=== PATIENT | female | born 1935 | race Caucasian/White ===

== ENCOUNTER 2018-10-29 06:06 | Inpatient (IN) ==
[2018-10-29] MEDS ORDERED: *HR* FentaNYL (PF) 100 MCG/2 ML VIAL IVP ONE ×2 (06:17→07:27)
--- NOTE | 2018-10-29 07:32 | Emergency Department Note ---
Disposition Clinical Impression: Closed fracture of pubic ramus Pelvic fracture Qualifiers: Encounter type: initial encounter Pelvic bone location: pubis Sublocation of pubis: unspecified portion of pubis Fracture type: closed Laterality: right Qualified Code(s): S32.501A - Unspecified fracture of right pubis, initial encounter for closed fracture Disposition: Admitted As Inpatient Condition: Fair Referrals: Kath Patton MD [Primary Care Provider] - Forms: ED Satisfaction Letter Time of Disposition: 08:48 (Dr. Mic Gillette will admit) Fall HPI - General Chief Complaint: ED Fall Stated Complaint: right hip pain Time Seen by Provider: 10/29/18 07:27 Source: patient, family, EMS Mode of arrival: EMS Limitations: no limitations Nursing Notes Reviewed: Yes Vital Signs Reviewed: Yes - History of Present Illness Pt Subjective Complaint: fall Onset (ago): hour(s) (Fell about 4:00) Fall From: standing Fall Witnessed: no Place Fall Occurred: home Loss of Consciousness: none Prolonged Down Time?: no Symptoms Prior to Fall: none Context: tripped/slipped (Not exactly sure what she tripped over thinks it was some cardboard boxes that were there. States that she did hit her head but did not have a loss of consciousness. Pain to right hip but was able to get herself up and walk back to bed painfully) Location of injury: head, hip (Right hip), pelvis Location of injury - extremities: Right: hip Severity: severe Quality: sharp Associated symptoms (after fall): Reports: denies - Related Data Home Medications Medication Instructions Recorded Confirmed Clopidogrel [Plavix] 75 mg PO DAILY 02/20/17 08/11/18 Losartan Potassium [Cozaar] 50 mg PO DAILY 02/20/17 08/11/18 Omeprazole [PriLOSEC] 40 mg PO DAILY 02/20/17 08/11/18 Temazepam [Restoril] 15 mg PO HS 02/20/17 08/11/18 hydroCHLOROthiazide 12.5 mg PO DAILY 02/20/17 08/11/18 [Hydrochlorothiazide] Cholecalciferol (D-3) [Vitamin D] 2,000 unit PO DAILY 05/28/18 08/11/18 Rosuvastatin Calcium 5 mg PO DAILY 05/28/18 08/11/18 Vit C/E/Zn/Coppr/Lutein/Zeaxan 1 tab PO DAILY 05/28/18 08/11/18 [Preservision Areds 2 Softgel] Lactobacillus Acidophilus 1 mg PO 08/11/18 [Acidophilus Probiotic] Previous Rx's Medication Instructions Recorded Fexofenadine HCl 60 mg PO DAILY #20 tablet 05/30/18 Nitrofurantoin (BID) [Macrobid] 100 mg PO BID 7 Days #14 capsule 10/18/18 hydrOXYzine HCl [Hydroxyzine HCl] 25 mg PO Q6HR PRN #20 tab 10/18/18 Allergies Allergy/AdvReac Type Severity Reaction Status Date / Time acetazolamide Allergy Hallucinati Verified 10/18/18 11:15 [From Diamox Sequels] ng Penicillins [PCN] Allergy Hives Verified 10/18/18 11:15 All systems ED: reviewed and negative except as stated. Eyes: Denies: vision change Cardiovascular: Denies: chest pain, palpitations Respiratory: Denies: cough, dyspnea Gastrointestinal: Denies: abdominal pain, nausea, vomiting Musculoskeletal: Reports: arthralgia (Right hip and right buttock) Neurological: Denies: headache, weakness, numbness Fall PMH - Past Medical History Medical history: Reports: arthritis, cancer, GERD, hypertension Surgical history: Reports: angioplasty/stent, breast surgery (Right breast tumor removal), cancer surgery (Rectal cancer), cataract, cholecystectomy Psychiatric history: Reports: anxiety, depression DIRECTOR OF ACCOUNTS PAYABLE history: Reports: non-contributory - Social History Smoking Status: Former smoker Alcohol use: Reports: none Drug use: Reports: none Physical Exam - General Limitations: no limitations General appearance: alert, other (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 No lacerations) - Eye Eye exam: Present: normal appearance, PERRL, EOMI. Absent: scleral icterus, conjunctival injection - ENT ENT exam: normal exam, normal oropharynx, mucous membranes moist, normal external ear exam - Neck Neck exam: Present: normal inspection, full ROM, trachea midline. Absent: tenderness (No tenderness to the C-spine. Full range of motion in the neck without pain to the C-spine. Bears axial load on the C-spine without any pain) - Chest Chest inspection: Present: normal inspection, symmetric chest wall rise. Absent: tenderness - Respiratory Respiratory exam: Present: normal lung sounds bilaterally. Absent: respiratory distress, wheezes - Cardiovascular Cardiovascular exam: Present: regular rate, normal rhythm, normal heart sounds - Abdominal Exam Abdominal exam: Present: soft, Non-Tender, normal bowel sounds - Extremities Exam Extremities exam: Present: other (Patient has no tenderness to palpation of the pelvis. She has no tenderness palpation of the greater trochanters of either hip. She is moving both hip joints while moaning but does not seen that her hip particularly hurts more with movement of the hip joints. She seems to have more discomfort in the buttocks on the right when she moves. Distal neurologic and vascular examination is normal.) - Neurological Exam Neurological exam: Present: alert, oriented X3. Absent: motor sensory deficit - Psychiatric Psychiatric exam: Present: normal affect, normal mood - Skin Skin exam: Present: warm, dry, intact Course Course Narrative: Patient tripped and fell at home. She hit her head and hurt her right hip. She was able to ambulate on it after the fall. We will CT the head and x-ray the hip. I will give her pain medications. Disposition will be based on diagnostic results and reevaluation. - Reevaluation(s) Reevaluation #1: X-ray of the hip shows a right-sided superior and inferior pubic ramus fracture. However the patient points to the greater trochanter as location of her discomfort. Furthermore she is not tender to palpation over the pubic rami on either side on vigorous palpation. She seems a lot of discomfort to the buttock/sacral area on the right with movement. She keeps lifting her right and left leg up, flexing at the hip, in order to obtain a position of comfort. Overall the exam and patient complaint does not seem consistent with lower seen on the plain films. I am going to proceed with CT of the pelvis to get a better look at the pelvic ring and the right hip. We will give her more pain medicines. Fortunately her head CT looks fine. No other injury identified on physical exam or complained about why the patient. Time: 07:37 Reevaluation #2: At this point is the end of my shift. I will be turning the case over to the oncoming physician, Dr. Fisher. I am given report and disposition will be based on the CT and reevaluation. Time: 07:49 Vital Signs Temperature 97.8 F 10/29/18 06:09 Pulse Rate 86 10/29/18 06:09 Respiratory Rate 17 10/29/18 06:09 Blood Pressure 143/79 10/29/18 06:09 O2 Sat by Pulse Oximetry 97 10/29/18 06:09 Temperature 97.8 F 10/29/18 06:09 Pulse Rate 76 10/29/18 08:38 Respiratory Rate 17 10/29/18 08:38 Blood Pressure 131/54 10/29/18 08:38 O2 Sat by Pulse Oximetry 97 10/29/18 08:38 Oxygen Delivery Oxygen Delivery Room Air Fall - MDM Narrative Medical decision making narrative: This case was turned over to me by previous physician at [address] of the right hip. CT scan per radiology reading shows a right superior amp inferior pubic ramus fracture. Patient has ongoing pain and cannot bear weight on her right lower extremity secondary to the pain. I spoke to the hospitalist Dr. Mic Gillette, and he has agreed to admit the patient for pain management and possible physical therapy. - Radiology Data Radiology results reviewed: Yes I reviewed the patient's radiology results.
[2018-10-29] MEDS ORDERED: Morphine Sulfate 2 MG/ML SYRINGE IVP ONE (08:39)
[2018-10-29] MEDS ORDERED: Ondansetron 4 MG/2 ML VIAL IVP ONE (08:40)
[2018-10-29] MEDS ORDERED: Ondansetron 4 MG/2 ML VIAL IVP PRN ×2 (08:43→10:11)
[2018-10-29] MEDS ORDERED: *HR* HYDROcodone/Acet 5/325 mg TABLET PO PRN ×2 (08:43→10:11)
[2018-10-29] MEDS ORDERED: Naloxone 0.4 MG/ML INJ IVP PRN ×2 (08:43→10:11)
[2018-10-29] MEDS ORDERED: hydrOXYzine pamoate 25 MG CAPSULE PO PRN (10:11)
--- NOTE | 2018-10-29 12:36 | Internal Med History&Physical ---
Date of Encounter: 10/29/18 Time of Encounter: 12:34 Assessment and Plan (1) Fracture of sacrum Current visit: Yes Status: Acute Patient with non-displaced to minimally displaced fracture of R sacrum, R inferior pubic ramus, and R superior pubic ramus. Will continue supportive care with pain control. Will arrange PT/OT and social work eval as pt may require rehab stay. Consider sports medicine evaluation on Wednesday. Consider DXA scan as outpatient if not up to date. Qualifiers: Encounter type: initial encounter Zone of sacrum fracture: unspecified portion of sacrum Fracture type: closed Qualified Code(s): S32.10XA - Unspecified fracture of sacrum, initial encounter for closed fracture (2) Fracture of superior ramus of right pubis Current visit: Yes Status: Acute Qualifiers: Encounter type: initial encounter Fracture type: closed Qualified Code(s): S32.511A - Fracture of superior rim of right pubis, initial encounter for closed fracture (3) Fracture of right inferior pubic ramus Current visit: Yes Status: Acute Qualifiers: Encounter type: initial encounter Fracture type: closed Qualified Code(s): S32.591A - Other specified fracture of right pubis, initial encounter for closed fracture (4) Hypertension Current visit: Yes Status: Chronic Appears under fair control. Will continue outpatient regimen and monitor. Will check labs in AM. Qualifiers: Hypertension type: essential hypertension Qualified Code(s): I10 - Essential (primary) hypertension (5) GERD (gastroesophageal reflux disease) Current visit: Yes Status: Chronic Well-controlled. Will continue outpatient regimen. Qualifiers: Esophagitis presence: without esophagitis Qualified Code(s): K21.9 - Gastro-esophageal reflux disease without esophagitis (6) Anxiety disorder Current visit: Yes Status: Chronic Well-controlled. Will continue outpatient regimen. Qualifiers: Anxiety disorder type: generalized anxiety disorder Qualified Code(s): F41.1 - Generalized anxiety disorder (7) Hyperlipidemia Current visit: Yes Status: Chronic Will continue home statin regimen. Qualifiers: Hyperlipidemia type: unspecified Qualified Code(s): E78.5 - Hyperlipidemia, unspecified Internal Medicine - H&P: HPI Chief complaint: hip pain Admitted From: Emergency Dept Plans for Post Hospital Care: Home History of present illness: Ms. Lima is a 83 year old female that presented to ED with hip and back pain s/p fall. Pt sustained a mechanical fall in which she tripped and fell forward, striking head and right hip. She denies LOC. She had fairly severe R hip pain s/p fall and was able to ambulate to phone to call EMS. Pt was transported to ED in which she was found to have sacral and pubic rami fractures. She was admitted to the med-surg floor for on going care needs including pain control and PT/OT eval with possible need for rehab placement. Past Med Surg Social Fam HX - Past Medical History Medical history: arthritis, cancer, GERD, hypertension Additional medical history: breast ca Psychiatric history: anxiety, depression - Past Surgical History Surgical History: angioplasty/stent, breast surgery (Right breast tumor removal), cancer surgery (Rectal cancer), cataract, cholecystectomy Additional surgical history: R breast tumor removal, rectal tumor removed, AND 5 LYMPH NODES REMOVED - Social History Smoking Status: Former smoker Smokeless Tobacco Status: No Alcohol use: none Drug use: none Internal Medicine - H&P: Meds Clopidogrel [Plavix] 75 mg PO DAILY 02/20/17 [History] Losartan Potassium [Cozaar] 50 mg PO DAILY 02/20/17 [History] Omeprazole [PriLOSEC] 40 mg PO DAILY 02/20/17 [History] Temazepam [Restoril] 15 mg PO HS 02/20/17 [History] hydroCHLOROthiazide [Hydrochlorothiazide] 12.5 mg PO DAILY 02/20/17 [History] Cholecalciferol (D-3) [Vitamin D] 2,000 unit PO DAILY 05/28/18 [History] Rosuvastatin Calcium 5 mg PO DAILY 05/28/18 [History] Vit C/E/Zn/Coppr/Lutein/Zeaxan [Preservision Areds 2 Softgel] 1 tab PO DAILY 05/28/18 [History] Fexofenadine HCl 60 mg PO DAILY #20 tablet 05/30/18 [Rx] Lactobacillus Acidophilus [Acidophilus Probiotic] 1 mg PO 08/11/18 [History] Nitrofurantoin (BID) [Macrobid] 100 mg PO BID 7 Days #14 capsule 10/18/18 [Rx] hydrOXYzine HCl [Hydroxyzine HCl] 25 mg PO Q6HR PRN #20 tab 10/18/18 [Rx] Allergy/AdvReac Type Severity Reaction Status Date / Time acetazolamide Allergy Hallucinati Verified 10/18/18 11:15 [From Diamox Sequels] ng Penicillins [PCN] Allergy Hives Verified 10/18/18 11:15 All Systems PM: A 10-system review of systems was performed and is negative for pertinent findings except as documented above in the HPI. - Constitutional Vitals: Temp Pulse Resp BP Pulse Ox 98.3 F 88 17 150/76 97 10/29/18 10:50 10/29/18 10:50 10/29/18 10:50 10/29/18 10:50 10/29/18 10:50 Exam: Gen: Lying in bed, NAD HEENT: NC, AT Neck: Trachea midline, no mass Pulm: No respiratory distress, CTAB CV: Normal S1 and S2, RRR Abdomen: Soft, ND, NT Ext: No C/C/E Neuro: No appreciable motor/sensor deficits Skin: Warm and dry, no rash Psych: A&Ox3 Internal Med - H&P Results - Impressions ITS Impressions Head CT 10/29/18 06:15 IMPRESSION: 1. No acute intracranial abnormality. D/ / Cezar Rogers MD / Cezar Rogers MD Interpreting Provider: eCzar Rogers MD Hip X-Ray 10/29/18 06:15 IMPRESSION: 1. Acute fractures of the right superior and inferior pubic rami. D/ / Cezar Rogers MD / Cezar Rogers MD Interpreting Provider: Cezar Rogers MD Hip CT 10/29/18 07:29 IMPRESSION: Pelvis: 1. Suspected acute nondisplaced right sacral ala fracture. 2. Slightly displaced segmental inferior right pubic ramus fracture. Right superior pubic ramus fracture. 3. Mild sigmoid colonic diverticulosis. Right hip: 1. Minimally displaced to nondisplaced right sacral ala fracture, partially visualized. 2. Acute fractures involving the right superior and inferior pubic rami. 3. Mild right hip osteoarthrosis. 4. Mild sigmoid colonic diverticulosis. D/ / 10/29/2018 09:18:13 Chris Jordan MD / yonas Interpreting Provider: Chris Jordan MD
[2018-10-29] MEDS: *HR* Heparin 5,000 UNIT/ML VIAL SQ SCH ×2 (13:35→21:09)
[2018-10-29] MEDS: Loratadine 10 MG TABLET PO SCH (13:36)
[2018-10-29] MEDS: Cholecalciferol (D-3) 1,000 UNIT (25MCG) TABLET PO SCH (13:37)
[2018-10-29] MEDS: hydroCHLOROthiazide 25 MG TABLET PO SCH (13:37)
[2018-10-29] MEDS: Multivit/Ca/Min/Fe/FA 1 TAB TABLET PO SCH (13:37)
[2018-10-29] MEDS: Nitrofurantoin (BID) 100 MG CAPSULE PO SCH ×2 (13:37→21:11)
[2018-10-29] MEDS: *HR* HYDROcodone/Acet 5/325 mg TABLET PO PRN ×2 (16:45→21:09)
[2018-10-29] MEDS ORDERED: hydrOXYzine pamoate 25 MG CAPSULE PO SCH (20:00)
[2018-10-29] MEDS: Temazepam 15 MG CAPSULE PO SCH (21:08)
[2018-10-29] MEDS: hydrOXYzine pamoate 25 MG CAPSULE PO PRN (21:08)
[2018-10-30] MEDS: *HR* HYDROcodone/Acet 5/325 mg TABLET PO PRN ×2 (00:55→06:25)
[2018-10-30] MEDS: hydrOXYzine pamoate 25 MG CAPSULE PO PRN ×2 (02:48→17:27)
[2018-10-30 03:21] LABS: Bilirubin,Urine Negative (Negative); Blood,Urine Negative (Negative); Glucose,Urine (UA) Normal (Normal); Ketones,Urine 15 mg/dL (Negative); Leukocyte Esterase,Urine Negative (Negative); Nitrite,Urine Negative (Negative); Protein,Urine Negative (Neg-Trace); Specific Gravity,Urine 1.015 (1.010-1.025); Urobilinogen,Urine Normal (Normal)
[2018-10-30 03:24] LABS: Clarity,Urine Clear (Clear); Color,Urine Yellow (Yellow)
[2018-10-30] MEDS: *HR* Heparin 5,000 UNIT/ML VIAL SQ SCH ×3 (06:25→20:49)
[2018-10-30 06:54] LABS: Basophils % 0.6 %; Eosinophils % 0.6 %; Hemoglobin 8.1 g/dL (11.5-15.4); Immature Granulocytes % 0.4 % (0-4); Lymphocytes # 0.6 K/mcL (0.6-4.6); Lymphocytes % 7.8 %; Mean Corpuscular HGB Conc 32.4 g/dL (31.6-35.5); Mean Corpuscular Hemoglobin 31.5 pg (28.0-33.3); Mean Corpuscular Volume 97.3 fL (83.0-100.0); Mean Platelet Volume 10.3 fL (9.4-12.4); Monocytes # 0.5 K/mcL (0.0-1.3); Monocytes % 6.8 %; Neutrophils # 5.9 K/mcL (1.6-8.9); Platelet Count 168 K/mcL (140-400); Red Blood Count 2.57 M/mcL (3.82-4.97); Red Cell Distribution Width 13.4 % (11.5-14.5); Segmented Neutrophils % 83.8 %; White Blood Count 7.1 K/mcL (4.3-11.1)
[2018-10-30] MEDS: hydroCHLOROthiazide 25 MG TABLET PO SCH (07:06)
[2018-10-30 07:09] LABS: Calcium 8.3 mg/dL (8.6-10.3); Potassium 3.6 mEq/L (3.5-5.1)
[2018-10-30] MEDS: Cholecalciferol (D-3) 1,000 UNIT (25MCG) TABLET PO SCH (08:56)
[2018-10-30] MEDS: Loratadine 10 MG TABLET PO SCH (08:56)
[2018-10-30] MEDS: Multivit/Ca/Min/Fe/FA 1 TAB TABLET PO SCH (08:56)
[2018-10-30] MEDS: Nitrofurantoin (BID) 100 MG CAPSULE PO SCH (08:58)
[2018-10-30] MEDS ORDERED: 0.9 % Sodium Chloride 250 ML IVC ONE (09:26)
--- NOTE | 2018-10-30 11:06 | Internal Med Progress Note ---
Date of Encounter: 10/30/18 Time of Encounter: 10:35 - Assessment and plan (1) Closed fracture of pubic ramus Current Visit: Yes Status: Acute Assessment and plan: October 30. Analgesics will be given on a scheduled basis with additional prn medication available. PT and OT evaluation will be done and further workup as needed. Qualifiers: Encounter type: initial encounter Laterality: right Qualified Code(s): S32.591A - Other specified fracture of right pubis, initial encounter for closed fracture (2) Fracture of sacrum Current Visit: Yes Status: Acute Assessment and plan: October 30. As above Qualifiers: Encounter type: initial encounter Zone of sacrum fracture: unspecified port ion of sacrum Fracture type: closed Qualified Code(s): S32.10XA - Unspecified fracture of sacrum, initial encounter for closed fracture (3) Anemia Current Visit: Yes Status: Chronic Assessment and plan: October 30. Present on labs frequently since August 2014. Anemia testing will be ordered. Qualifiers: Anemia type: unspecified type Qualified Code(s): D64.9 - Anemia, unspecified (4) LUZ (acute kidney injury) Current Visit: Yes Status: Acute Assessment and plan: Possibly multifactorial etiology including use of losartan and HCTZ. These medications will be held and IV fluids administered. Follow-up labs will be ordered in a.m. (5) CKD (chronic kidney disease) stage 3, GFR 30-59 ml/min Current Visit: Yes Status: Acute Assessment and plan: October 30. Monitor renal indices. (6) Weight loss Current Visit: Yes Status: Acute Assessment and plan: October 30. TSH was normal at 3.959 on 10/07/2018. CT of chest and abdomen will be ordered. (7) Hypertension Current Visit: Yes Status: Chronic Assessment and plan: October 30. Blood pressure borderline low. Remain off antihypertensive medication and monitor. Qualifiers: Hypertension type: essential hypertension Qualified Code(s): I10 - Essential (primary) hypertension - Subjective Interval history: October 30. She has no new complaints. Additional review of systems revealed following: Gen.: She states her weight has decreased from 120 pounds to 104 pounds over past 2 years unintentionally. She attributes this to depression. Cardiovascular: She has history of hypertension and known ASHD status post single stent placement approximately 2013. She has not had follow-up EST or heart catheter. She denies NC heart failure DVT or pulmonary embolus. Respiratory: She is a lifelong nonsmoker denies chronic lung disease GI: She has had cholecystectomy. She has diagnoses of GERD. She denies disorders of her liver or exocrine pancreas : She was unaware she had chronic kidney disease. She denies other kidney or bladder disorders. Neurologic: She denies large distribution strokes or seizures. Endocrine: She has history of hyperkalemia. She denies diabetes or thyroid disease. Hematology/oncology: She was diagnosed with right breast cancer approximately 1996 and underwent lumpectomy followed by chemotherapy and XRT. She was diagnosed with rectal cancer approximately 2011 and had surgery but denies chemotherapy. She states she is cancer free. She was unaware she had anemia. Psychiatric: She has anxiety and depression but denies other mental health diagnoses. Muscle skeletal: She has DJD but denies gout or other bone joint or muscle disorders. - Constitutional Vitals: Temp Pulse Resp BP Pulse Ox 98.5 F 68 16 80/43 98 10/30/18 06:38 10/30/18 06:38 10/30/18 06:38 10/30/18 06:38 10/30/18 06:38 Exam: Gen.: She is a well-developed well-nourished female resting comfortably in bed who appears pale and in [id number] pain on movement. HEENT: Head is atraumatic and normocephalic. Eyes: EOMI. There is no scleral icterus. Mouth: Mucosa is moist. Neck: Supple and nontender. There is no thyromegaly or adenopathy noted. Heart: Regular without murmurs gallops or ectopics Lungs: No wheezes or crackles are heard. Abdomen: She has mild tenderness in the lower abdominal area bilaterally on palpation. No masses or guarding are noted. Extremities: She has DJD changes of her hands. Dorsalis pedis and posterior tibial pulses are 1-2/2 bilaterally. Neurologic: Mental status: She is talkative and a good historian. Cranial nerves: Smile is symmetric. Forehead wrinkles bilaterally. Tongue protrudes midline. EOMI. Motor: There is no pronator drift. Cerebellar: Fair to nose is intact bilaterally. Skin: Warm and dry Internal Medicine: Result - Labs CBC & Chem 7: 10/30/18 06:18 10/30/18 06:18 Labs: Short CBC 10/30/18 Range/Units 06:18 WBC 7.1 (4.3-11.1) K/mcL Hgb 8.1 L (11.5-15.4) g/dL Hct 25.0 L (35.3-44.9) % Plt Count 168 (140-400) K/mcL Neutrophils # 5.9 (1.6-8.9) K/mcL BMP 10/30/18 06:18 Sodium 141 Potassium 3.6 Chloride 105 Carbon Dioxide 30 H BUN 25 H Creatinine 1.46 H Glucose 123 H Calcium 8.3 L Liver Function 10/30/18 Range/Units 06:18 Albumin 3.0 L (3.5-5.7) g/dL Urine 10/30/18 Range/Units 03:10 Urine Color Yellow (Yellow) Urine Clarity Clear (Clear) Urine pH 5.0 (5.0-8.0) pH Units Ur Specific [place] 1.015 (1.010-1.025) Urine Protein Negative (Neg-Trace) mg/dL Urine Glucose (UA) Normal (Normal) mg/dL - Impressions Impressions Hip CT 10/29/18 07:29 IMPRESSION: Pelvis: 1. Suspected acute nondisplaced right sacral ala fracture. 2. Slightly displaced segmental inferior right pubic ramus fracture. Right superior pubic ramus fracture. 3. Mild sigmoid colonic diverticulosis. Right hip: 1. Minimally displaced to nondisplaced right sacral ala fracture, partially visualized. 2. Acute fractures involving the right superior and inferior pubic rami. 3. Mild right hip osteoarthrosis. 4. Mild sigmoid colonic diverticulosis. D/ / 10/29/2018 09:18:13 Chris Jordan MD / yonas Interpreting Provider: Chris Jordan MD Consult Discharge Plan - Plan Referrals: Kath Patton MD [Primary Care Provider] - 1 week
[2018-10-30] MEDS: 0.45 % Sodium Chloride w/KCl 20 MEQ/1,000 ML MLS IVC SCH ×2 (12:02→22:32)
[2018-10-30] MEDS: *HR* OxyCODONE Immed Rel 5 MG TABLET PO PRN ×2 (13:42→17:27)
[2018-10-30] MEDS: Temazepam 15 MG CAPSULE PO SCH (20:01)
[2018-10-31] MEDS: *HR* Heparin 5,000 UNIT/ML VIAL SQ SCH (05:51)
[2018-10-31 06:43] LABS: Basophils % 0.3 %; Eosinophils # 0.2 K/mcL (0.0-0.6); Eosinophils % 2.6 %; Hematocrit 26.1 % (35.3-44.9); Hemoglobin 8.3 g/dL (11.5-15.4); Immature Granulocytes % 0.3 % (0-4); Lymphocytes # 1.1 K/mcL (0.6-4.6); Lymphocytes % 16.9 %; Mean Corpuscular HGB Conc 31.8 g/dL (31.6-35.5); Mean Corpuscular Hemoglobin 31.2 pg (28.0-33.3); Mean Corpuscular Volume 98.1 fL (83.0-100.0); Mean Platelet Volume 10.1 fL (9.4-12.4); Monocytes # 0.5 K/mcL (0.0-1.3); Monocytes % 7.9 %; Neutrophils # 4.5 K/mcL (1.6-8.9); Platelet Count 149 K/mcL (140-400); Red Blood Count 2.66 M/mcL (3.82-4.97); Red Cell Distribution Width 13.8 % (11.5-14.5); White Blood Count 6.2 K/mcL (4.3-11.1)
[2018-10-31 07:10] LABS: Calcium 8.2 mg/dL (8.6-10.3); Magnesium 1.7 mg/dL (1.6-2.6); Potassium 4.5 mEq/L (3.5-5.1)
[2018-10-31] MEDS: 0.45 % Sodium Chloride w/KCl 20 MEQ/1,000 ML MLS IVC SCH ×3 (09:33→19:56)
[2018-10-31] MEDS: MOM Conc 10 ML UD.LIQ PO SCH (09:33)
[2018-10-31] MEDS: Cholecalciferol (D-3) 1,000 UNIT (25MCG) TABLET PO SCH (09:33)
[2018-10-31] MEDS: Multivit/Ca/Min/Fe/FA 1 TAB TABLET PO SCH (09:34)
[2018-10-31] MEDS: *HR* OxyCODONE Immed Rel 5 MG TABLET PO PRN ×2 (09:34→13:46)
[2018-10-31 09:38] LABS: Folate 16.4 ng/mL (3.0-16.0)
--- NOTE | 2018-10-31 11:49 | Internal Med Progress Note ---
Date of Encounter: 10/31/18 Time of Encounter: 11:35 - Assessment and plan (1) Closed fracture of pubic ramus Current Visit: Yes Status: Acute Assessment and plan: October 30. Analgesics will be given on a scheduled basis with additional prn medication available. PT and OT evaluation will be done and further workup as needed. October 31. Duragesic patch will be added. Continue scheduled Tylenol and prn Roxicodone. PT/OT evaluations have been ordered. I requested orthopedist to evaluate her x-rays and determine weightbearing status. Qualifiers: Encounter type: initial encounter Laterality: right Qualified Code(s): S32.591A - Other specified fracture of right pubis, initial encounter for closed fracture (2) Fracture of sacrum Current Visit: Yes Status: Acute Assessment and plan: October 30. As above Qualifiers: Encounter type: initial encounter Zone of sacrum fracture: unspecified portion of sacrum Fracture type: closed Qualified Code(s): S32.10XA - Unspecified fracture of sacrum, initial encounter for closed fracture (3) Anemia Current Visit: Yes Status: Chronic Assessment and plan: October 30. Present on labs frequently since August 2014. Anemia testing will be ordered. October 31. Anemia testing shows iron 11, transferrin saturation 5%, transferrin 153, ferritin 206, B12 144, and folate 16.4. She will be given a B12 injection and start oral B12 supplement. Ferrous sulfate with ascorbic acid will be started in a.m. Qualifiers: Anemia type: unspecified type Qualified Code(s): D64.9 - Anemia, unspecified (4) LUZ (acute kidney injury) Current Visit: Yes Status: Acute Assessment and plan: October 30. Possibly multifactorial etiology including use of losartan and HCTZ. These medications will be held and IV fluids administered. Follow-up la bs will be ordered in a.m. October 31. Creatinine decreased to 1.25 with estimated GFR 41. Continue present Rx and monitor labs. (5) CKD (chronic kidney disease) stage 3, GFR 30-59 ml/min Current Visit: Yes Status: Acute Assessment and plan: October 30. Monitor renal indices. (6) Weight loss Current Visit: Yes Status: Acute Assessment and plan: October 30. TSH was normal at 3.959 on 10/07/2018. CT of chest and abdomen will be ordered. October 31. CT of chest and abdomen showed no worrisome pathology. (7) Hypertension Current Visit: Yes Status: Chronic Assessment and plan: October 30. Blood pressure borderline low. Remain off antihypertensive medication and monitor. October 31. BP stable off medication. Continue to monitor. Qualifiers: Hypertension type: essential hypertension Qualified Code(s): I10 - Essential (primary) hypertension - Subjective Interval history: October 30. She has no new complaints. Additional review of systems revealed following: Gen.: She states her weight has decreased from 120 pounds to 104 pounds over past 2 years unintentionally. She attributes this to depression. Cardiovascular: She has history of hypertension and known ASHD status post single stent placement approximately 2013. She has not had follow-up EST or heart catheter. She denies [place] heart failure DVT or pulmonary embolus. Respiratory: She is a lifelong nonsmoker denies chronic lung disease GI: She has had cholecystectomy. She has diagnoses of GERD. She denies disorders of her liver or exocrine pancreas : She was unaware she had chronic kidney disease. She denies other kidney or bladder disorders. Neurologic: She denies large distribution strokes or seizures. Endocrine: She has history of hyperkalemia. She denies diabetes or thyroid disease. Hematology/oncology: She was diagnosed with right breast cancer approximately 1996 and underwent lumpectomy followed by chemotherapy and XRT. She was diagnosed with rectal cancer approximately 2011 and had surgery but denies c hemotherapy. She states she is cancer free. She was unaware she had anemia. Psychiatric: She has anxiety and depression but denies other mental health diagnoses. Muscle skeletal: She has DJD but denies gout or other bone joint or muscle disorders. October 31. She complains of significant pelvic pain - Constitutional Vitals: Temp Pulse Resp BP Pulse Ox 97.5 F L 72 16 118/66 99 10/31/18 06:55 10/31/18 06:55 10/31/18 06:55 10/31/18 06:55 10/31/18 06:55 Exam: She is lying in bed and appears to be in pain on movement. She is appropriate in conversation and seems to be in less pain when the conversation is shifted away from discussing her pain level. I reviewed her medications and lab results. Internal Medicine: Result - Labs CBC & Chem 7: 10/31/18 06:30 10/31/18 06:30 Labs: Short CBC 10/31/18 Range/Units 06:30 WBC 6.2 (4.3-11.1) K/mcL Hgb 8.3 L (11.5-15.4) g/dL Hct 26.1 L (35.3-44.9) % Plt Count 149 (140-400) K/mcL Neutrophils # 4.5 (1.6-8.9) K/mcL BMP 10/31/18 06:30 Sodium 141 Potassium 4.5 Chloride 106 Carbon Dioxide 30 H BUN 31 H Creatinine 1.25 H Glucose 96 Calcium 8.2 L - Impressions Impressions Chest CT 10/30/18 11:22 IMPRESSION: 1. Small bilateral pleural effusions and mild bibasilar atelectasis. 2. Redemonstration of an acute nondisplaced right sacral ala fracture with partially visualized presacral stranding. 3. Status post cholecystectomy. D/ / Ciro Gillette MD / Ciro Gillette MD Interpreting Provider: Ciro Gillette MD Abdomen CT 10/30/18 11:29 IMPRESSION: 1. Small bilateral pleural effusions and mild bibasilar atelectasis. 2. Redemonstration of an acute nondisplaced right sacral ala fracture with partially visualized presacral stranding. 3. Status post cholecystectomy. D/ / Ciro Gillette MD / Ciro Gillette MD Interpreting Provider: Ciro Gillette MD Consult Discharge Plan - Plan Referrals: Kath Patton MD [Primary Care Provider] - 1 week
[2018-10-31] MEDS ORDERED: Cyanocobalamin (B-12) 1,000 MCG/ML VIAL IM ONE (11:52)
[2018-10-31] MEDS ORDERED: *HR* FentaNYL PATCH 12 MCG PATCH TD SCH (12:00)
[2018-10-31] MEDS: Temazepam 15 MG CAPSULE PO SCH (20:18)
[2018-11-01] MEDS: Ascorbic Acid 500 MG TABLET PO SCH (06:46)
[2018-11-01] MEDS: *HR* Enoxaparin 30 MG/0.3 ML SYRINGE SQ SCH (06:46)
[2018-11-01] MEDS: 0.45 % Sodium Chloride w/KCl 20 MEQ/1,000 ML MLS IVC SCH ×3 (06:50→19:43)
[2018-11-01] MEDS: Cyanocobalamin (B-12) 1,000 MCG TABLET PO SCH (07:47)
[2018-11-01] MEDS: Multivit/Ca/Min/Fe/FA 1 TAB TABLET PO SCH (07:47)
[2018-11-01] MEDS: Lactobacillus 1 EACH CAP.SPRINK PO SCH (07:47)
[2018-11-01] MEDS: Cholecalciferol (D-3) 1,000 UNIT (25MCG) TABLET PO SCH (07:47)
--- NOTE | 2018-11-01 09:52 | Internal Med Progress Note ---
Date of Encounter: 11/01/18 Time of Encounter: 09:45 - Assessment and plan (1) Closed fracture of pubic ramus Current Visit: Yes Status: Acute Assessment and plan: October 30. Analgesics will be given on a scheduled basis with additional prn medication available. PT and OT evaluation will be done and further workup as needed. October 31. Duragesic patch will be added. Continue scheduled Tylenol and prn Roxicodone. PT/OT evaluations have been ordered. I requested orthopedist to evaluate her x-rays and determine weightbearing status. November 01. Increase Duragesic patch size. Continue Tylenol and Roxicodone a s ordered. Qualifiers: Encounter type: initial encounter Laterality: right Qualified Code(s): S32.591A - Other specified fracture of right pubis, initial encounter for closed fracture (2) Fracture of sacrum Current Visit: Yes Status: Acute Assessment and plan: October 30. As above Qualifiers: Encounter type: initial encounter Zone of sacrum fracture: unspecified portion of sacrum Fracture type: closed Qualified Code(s): S32.10XA - Unspecified fracture of sacrum, initial encounter for closed fracture (3) Anemia Current Visit: Yes Status: Chronic Assessment and plan: October 30. Present on labs frequently since August 2014. Anemia testing will be ordered. October 31. Anemia testing shows iron 11, transferrin saturation 5%, transferrin 153, ferritin 206, B12 144, and folate 16.4. She will be given a B12 injection and start oral B12 supplement. Ferrous sulfate with ascorbic acid will be started in a.m. November 01. Recheck labs in a.m. Qualifiers: Anemia type: unspecified type Qualified Code(s): D64.9 - Anemia, unspecified (4) LUZ (acute kidney injury) Current Visit: Yes Status: Acute Assessment and plan: October 30. Possibly multifactorial etiology including use of losartan and HCTZ. These medications will be held and IV fluids administered. Follow-up labs will be ordered in a.m. October 31. Creatinine decreased to 1.25 with estimated GFR 41. Continue present Rx and monitor labs. November 01. Recheck labs in a.m. (5) CKD (chronic kidney disease) stage 3, GFR 30-59 ml/min Current Visit: Yes Status: Acute Assessment and plan: October 30. Monitor renal indices. (6) Weight loss Current Visit: Yes Status: Acute Assessment and plan: October 30. TSH was normal at 3.959 on 10/07/2018. CT of chest and abdomen will be ordered. October 31. CT of chest and abdomen showed no worrisome pathology. (7) Hypertension Current Visit: Yes Status: Chronic Assessment and plan: October 30. Blood pressure borderline low. Remain off antihypertensive medication and monitor. October 31. BP stable off medication. Continue to monitor. Qualifiers: Hypertension type: essential hypertension Qualified Code(s): I10 - Essential (primary) hypertension - Subjective Interval history: October 30. She has no new complaints. Additional review of systems revealed following: Gen.: She states her weight has decreased from 120 pounds to 104 pounds over past 2 years unintentionally. She attributes this to depression. Cardiovascular: She has history of hypertension and known ASHD status post single stent placement approximately 2013. She has not had follow-up EST or heart catheter. She denies [place] heart failure DVT or pulmonary embolus. Respiratory: She is a lifelong nonsmoker denies chronic lung disease GI: She has had cholecystectomy. She has diagnoses of GERD. She denies disorders of her liver or exocrine pancreas : She was unaware she had chronic kidney disease. She denies other kidney or bladder disorders. Neurologic: She denies large distribution strokes or seizures. Endocrine: She has history of hyperkalemia. She denies diabetes or thyroid disease. Hematology/oncology: She was diagnosed with right breast cancer approximately 1996 and underwent lumpectomy followed by chemotherapy and XRT. She was diagnosed with rectal cancer approximately 2011 and had surgery but denies chemotherapy. She states she is cancer free. She was unaware she had anemia. Psychiatric: She has anxiety and depression but denies other mental health diagnoses. Muscle skeletal: She has DJD but denies gout or other bone joint or muscle disorders. October 31. She complains of significant pelvic pain November 01. She states her pain level has not decreased. Her films were reviewed by the orthopedist yesterday who recommended NWB for 2 weeks. - Constitutional Vitals: Temp Pulse Resp BP Pulse Ox 98.3 F 78 20 129/76 97 11/01/18 06:28 11/01/18 06:28 11/01/18 06:28 11/01/18 06:28 11/01/18 06:28 Exam: She is lying in bed and moans in pain occasionally during the visit. Extremities show no edema. I reviewed her medications and lab results. Internal Medicine: Result - Labs CBC & Chem 7: 10/31/18 06:30 10/31/18 06:30 Consult Discharge Plan - Plan Referrals: Kath Patton MD [Primary Care Provider] - 1 week
[2018-11-01] MEDS ORDERED: *HR* FentaNYL PATCH 25 MCG PATCH TD SCH (10:00)
[2018-11-01] MEDS: *HR* OxyCODONE Immed Rel 5 MG TABLET PO PRN ×3 (10:36→22:21)
[2018-11-01] MEDS: hydrOXYzine pamoate 25 MG CAPSULE PO PRN (16:00)
[2018-11-01] MEDS: Temazepam 15 MG CAPSULE PO SCH (19:41)
[2018-11-01] MEDS: PRESERVISION AREDS 2 PO SCH (19:41)
[2018-11-02] MEDS: *HR* OxyCODONE Immed Rel 5 MG TABLET PO PRN (05:13)
[2018-11-02] MEDS: hydrOXYzine pamoate 25 MG CAPSULE PO PRN (05:13)
[2018-11-02] MEDS: Ascorbic Acid 500 MG TABLET PO SCH (05:24)
[2018-11-02] MEDS: *HR* Enoxaparin 30 MG/0.3 ML SYRINGE SQ SCH (05:24)
[2018-11-02 05:28] LABS: Basophils % 0.6 %; Eosinophils # 0.2 K/mcL (0.0-0.6); Hemoglobin 8.5 g/dL (11.5-15.4); Immature Granulocytes % 0.4 % (0-4); Lymphocytes % 18.2 %; Mean Corpuscular HGB Conc 31.5 g/dL (31.6-35.5); Mean Corpuscular Volume 98.5 fL (83.0-100.0); Mean Platelet Volume 10.4 fL (9.4-12.4); Monocytes # 0.4 K/mcL (0.0-1.3); Monocytes % 7.8 %; Neutrophils # 3.8 K/mcL (1.6-8.9); Platelet Count 222 K/mcL (140-400); Red Blood Count 2.74 M/mcL (3.82-4.97); Red Cell Distribution Width 13.8 % (11.5-14.5); White Blood Count 5.4 K/mcL (4.3-11.1)
[2018-11-02 05:42] LABS: BUN/Creatinine Ratio 24 (6-26); Blood Urea Nitrogen 23 mg/dL (8-23); Calcium 8.8 mg/dL (8.6-10.3); Carbon Dioxide 29 mEq/L (23-29); Chloride 106 mEq/L (98-107); Glucose 94 mg/dL (70-105); Osmolality,Calculated 295 (280-300); Potassium 5.7 mEq/L (3.5-5.1); Sodium 141 mEq/L (136-145); eGFR For African Americans > 60 (> 60); eGFR For Non-African Americans 55 (> 60)
[2018-11-02] MEDS: 0.45 % Sodium Chloride w/KCl 20 MEQ/1,000 ML MLS IVC SCH (07:43)
[2018-11-02] MEDS: Cholecalciferol (D-3) 1,000 UNIT (25MCG) TABLET PO SCH (08:01)
[2018-11-02] MEDS: Cyanocobalamin (B-12) 1,000 MCG TABLET PO SCH (08:01)
[2018-11-02] MEDS: Lactobacillus 1 EACH CAP.SPRINK PO SCH (08:01)
[2018-11-02] MEDS: Multivit/Ca/Min/Fe/FA 1 TAB TABLET PO SCH (08:01)
[2018-11-02] MEDS: MOM Conc 10 ML UD.LIQ PO SCH (08:02)
[2018-11-02] MEDS: PRESERVISION AREDS 2 PO SCH (08:03)
--- NOTE | 2018-11-02 14:40 | Discharge Summary ---
Date of Encounter: 11/02/18 Time of Encounter: 14:27 - Discharge Diagnosis (1) Closed fracture of pubic ramus Priority: Primary Status: Acute Qualifiers: Encounter type: initial encounter Laterality: right Qualified Code(s): S32.591A - Other specified fracture of right pubis, initial encounter for closed fracture (2) Fracture of sacrum Priority: Secondary Status: Acute Qualifiers: Encounter type: initial encounter Zone of sacrum fracture: unspecified portion of sacrum Fracture type: closed Qualified Code(s): S32.10XA - Unspecified fracture of sacrum, initial encounter for closed fracture (3) Anemia Priority: Secondary Status: Chronic Qualifiers: Anemia type: unspecified type Qualified Code(s): D64.9 - Anemia, unspecified (4) LUZ (acute kidney injury) Priority: Secondary Status: Acute (5) CKD (chronic kidney disease) stage 3, GFR 30-59 ml/min Priority: Secondary Status: Acute (6) Weight loss Priority: Secondary Status: Acute (7) Hypertension Priority: Secondary Status: Chronic Qualifiers: Hypertension type: essential hypertension Qualified Code(s): I10 - Essential (primary) hypertension Hospital course: Ms. Lima is a 83 year old female who came to emergency room after sustaining a fall. X-ray showed non-displaced to minimally displaced fracture of R sacrum, R inferior pubic ramus, and R superior pubic ramus. She had PT and OT evaluations with ongoing intervention. Analgesics were given on a scheduled and prn basis. She made satisfactory progress in therapy. She was recommended NWB by orthopedist who reviewed her films. She will follow with the orthopedist as an outpatient for further intervention/recommendations. Word was received on November 02 that she been approved for discharge to swing bed for ongoing therapy needs. Blood pressure remained satisfactory without medication. This will be monitored in swing bed. Additional lab work showed iron 11, transferrin saturation 5%, transferrin 153, ferritin 206, B12 144, weight 16.4. She was given a B12 injection and started on oral B12 supplement. She was also started on ferrous sulfate with ascorbic acid orally. These will be continued in swing bed. Hemoglobin had improved to 8.5 by day of discharge. IV fluids were given and azotemia improved with creatinine decreasing to 0.97 and estimated GFR 55 by day of discharge into swing bed. Chest and abdomen CT were done to further evaluate reported weight loss. No acute pathology was seen. - Time Spent with Patient Total time spent providing and/or coordinating discharge services: - Discharge Medications Prescriptions: New FentaNYL PATCH [Duragesic] 25 mcg TD Q72H 14 Days patch.[id number] Ferrous Sulfate 325 mg PO 0630 tablet MOM Conc [MILK OF MAGNESIA conc] 10 ml PO Q48H ud.liq Patient Taking Own Medication 1 each PO BID each Omeprazole [PriLOSEC] 20 mg PO DAILY@0630 PRN elia. PRN Reason: Dyspepsia OxyCODONE Immed Rel [Roxicodone 5 MG] 5 mg PO Q4HR PRN 7 Days #42 tablet PRN Reason: Pain Multivit/Ca/Min/Fe/FA [Thera M Plus] 1 tab PO DAILY tablet Acetaminophen [Tylenol] 500 mg PO Q4HWA tablet Ascorbic Acid [Vitamin C] 500 mg PO 0630 tablet Docusate [Colace] 100 mg PO BID capsule Cyanocobalamin (B-12) [Vitamin B12] 1,000 mcg PO DAILY tablet Continued hydrOXYzine HCl [Hydroxyzine HCl] 25 mg PO Q6HR PRN #20 tab PRN Reason: Anxiety Cholecalciferol (D-3) [Vitamin D] 2,000 unit PO DAILY Rosuvastatin Calcium 5 mg PO DAILY Discontinued Fexofenadine HCl 60 mg PO DAILY #20 tablet Nitrofurantoin (BID) [Macrobid] 100 mg PO BID 7 Days #14 capsule Omeprazole [PriLOSEC] 40 mg PO DAILY Losartan Potassium [Cozaar] 50 mg PO DAILY No Action Temazepam [Restoril] 15 mg PO HS Clopidogrel [Plavix] 75 mg PO DAILY Vit C/E/Zn/Coppr/Lutein/Zeaxan [Preservision Areds 2 Softgel] 1 tab PO BID Lactobacillus Acidophilus [Acidophilus Probiotic] 1 mg PO DAILY Celexa 10 mg PO DAILY Home Medications: Clopidogrel [Plavix] 75 mg PO DAILY 02/20/17 [History] Temazepam [Restoril] 15 mg PO HS 02/20/17 [History] Cholecalciferol (D-3) [Vitamin D] 2,000 unit PO DAILY 05/28/18 [History] Rosuvastatin Calcium 5 mg PO DAILY 05/28/18 [History] Vit C/E/Zn/Coppr/Lutein/Zeaxan [Preservision Areds 2 Softgel] 1 tab PO BID 05/28/18 [History] Lactobacillus Acidophilus [Acidophilus Probiotic] 1 mg PO DAILY 08/11/18 [History] hydrOXYzine HCl [Hydroxyzine HCl] 25 mg PO Q6HR PRN #20 tab 10/18/18 [Rx] Celexa 10 mg PO DAILY 10/31/18 [History] Acetaminophen [Tylenol] 500 mg PO Q4HWA tablet 11/02/18 [Rx] Ascorbic Acid [Vitamin C] 500 mg PO 0630 tablet 11/02/18 [Rx] Cyanocobalamin (B-12) [Vitamin B12] 1,000 mcg PO DAILY tablet 11/02/18 [Rx] Docusate [Colace] 100 mg PO BID capsule 11/02/18 [Rx] FentaNYL PATCH [Duragesic] 25 mcg TD Q72H 14 Days patch.td72 11/02/18 [Rx] Ferrous Sulfate 325 mg PO 0630 tablet 11/02/18 [Rx] MOM Conc [MILK OF MAGNESIA conc] 10 ml PO Q48H ud.liq 11/02/18 [Rx] Multivit/Ca/Min/Fe/FA [Thera M Plus] 1 tab PO DAILY tablet 11/02/18 [Rx] Omeprazole [PriLOSEC] 20 mg PO DAILY@0630 PRN capsule. 11/02/18 [Rx] OxyCODONE Immed Rel [Roxicodone 5 MG] 5 mg PO Q4HR PRN 7 Days #42 tablet 11/02/18 [Rx] Patient Taking Own Medication 1 each PO BID each 11/02/18 [Rx] Allergies/Adverse Reactions: Allergy/AdvReac Type Severity Reaction Status Date / Time acetazolamide Allergy Hallucinati Verified 10/18/18 11:15 [From Diamox [employer]els] ng Penicillins [PCN] Allergy Hives Verified 10/18/18 11:15 Date of admission: 10/30/18 11:18 Primary care physician: Kath Patton Consults: 10/29/18 08:44 Consult to Physical Therapy [CONS] Routine Comment: Evaluate, develop and implement POC Reason for Consult: hip pain, difficulty ambulating NWB to right LE may do transfers and w/c mobility Does patient have active BEDREST order?: Yes Is patient medically & hemodynamically stable?: Yes Patient assessed for mobility or mobilized this visit?: No 10/29/18 12:44 Consult to Occupational Therapy [CONS] Routine Comment: Evaluate, develop and implement POC Reason for Consult: pelvic fracture, immobility NWB to right LE may do transfers and w/c mobility Does patient have active BEDREST order?: No Is patient medically & hemodynamically stable?: Yes Consult to Emergency Services Dispatcher [CONS] Routine Reason for SW Consult: Possible need for rehab placement - Constitutional Vitals: Temp Pulse Resp BP Pulse Ox 98.4 F 84 19 131/67 96 11/02/18 06:25 11/02/18 06:25 11/02/18 06:25 11/02/18 06:25 11/02/18 06:25 - Patient Status Disposition: Transfer Hospital Swing Bed Condition: Fair - Discharge Instructions - Diet and Activity Activity: as per physical therapy Diet: low fat, low cholesterol, low salt diet
[2018-11-02 14:48] VITALS: BP 111/64
== END 2018-11-02 17:12 | disposition other institution (70) | DRG 536 ==
LOC: EMEROOPIK 06:06 → INPPIK 06:06
PROVIDERS: ADMIT Internal Medicine; ATTEND Internal Medicine

== ENCOUNTER 2018-11-02 16:03 | Inpatient (IN) ==
[2018-11-02] MEDS: MOM Conc 10 ML UD.LIQ PO SCH (18:14)
[2018-11-02] MEDS: *HR* OxyCODONE Immed Rel 5 MG TABLET PO PRN (18:15)
[2018-11-02] MEDS: PRESERVISION AREDS 2 FORMULA PO SCH (19:48)
[2018-11-03] MEDS: *HR* OxyCODONE Immed Rel 5 MG TABLET PO PRN ×3 (00:06→18:27)
[2018-11-03] MEDS: hydrOXYzine pamoate 25 MG CAPSULE PO PRN ×2 (01:14→20:25)
[2018-11-03] MEDS: Ascorbic Acid 500 MG TABLET PO SCH (05:26)
[2018-11-03] MEDS ORDERED: *HR* OxyCODONE Immed Rel 5 MG TABLET PO ONE (05:31)
[2018-11-03 06:53] LABS: Basophils % 0.5 %; Eosinophils # 0.2 K/mcL (0.0-0.6); Hemoglobin 8.1 g/dL (11.5-15.4); Immature Granulocytes % 0.3 % (0-4); Lymphocytes # 1.1 K/mcL (0.6-4.6); Lymphocytes % 13.3 %; Mean Corpuscular HGB Conc 32.4 g/dL (31.6-35.5); Mean Corpuscular Hemoglobin 30.7 pg (28.0-33.3); Mean Corpuscular Volume 94.7 fL (83.0-100.0); Mean Platelet Volume 10.4 fL (9.4-12.4); Monocytes # 0.6 K/mcL (0.0-1.3); Monocytes % 7.5 %; Platelet Count 253 K/mcL (140-400); Red Blood Count 2.64 M/mcL (3.82-4.97); Red Cell Distribution Width 14.1 % (11.5-14.5); Segmented Neutrophils % 76.4 %; White Blood Count 7.9 K/mcL (4.3-11.1)
[2018-11-03 07:16] LABS: BUN/Creatinine Ratio 24 (6-26); Blood Urea Nitrogen 24 mg/dL (8-23); Carbon Dioxide 31 mEq/L (23-29); Chloride 102 mEq/L (98-107); Glucose 98 mg/dL (70-105); Osmolality,Calculated 294 (280-300); Potassium 4.6 mEq/L (3.5-5.1); Sodium 140 mEq/L (136-145); eGFR For African Americans > 60 (> 60); eGFR For Non-African Americans 52 (> 60)
[2018-11-03] MEDS: Cholecalciferol (D-3) 1,000 UNIT (25MCG) TABLET PO SCH (08:01)
[2018-11-03] MEDS: Cyanocobalamin (B-12) 1,000 MCG TABLET PO SCH (08:01)
[2018-11-03] MEDS: Multivit/Ca/Min/Fe/FA 1 TAB TABLET PO SCH (08:02)
[2018-11-03] MEDS: PRESERVISION AREDS 2 FORMULA PO SCH ×2 (08:02→20:25)
--- NOTE | 2018-11-03 16:01 | Internal Med Progress Note ---
Date of Encounter: 11/03/18 Time of Encounter: 16:40 - Assessment and plan (1) Closed fracture of pubic ramus Current Visit: No Status: Acute Assessment and plan: November 03. Continue PT/OT, Duragesic, Tylenol, and prn Roxicodone. Qualifiers: Encounter type: initial encounter Laterality: right Qualified Code(s): S32.591A - Other specified fracture of right pubis, initial encounter for closed fracture (2) Fracture of sacrum Current Visit: No Status: Acute Assessment and plan: November 03. Continue PT/OT, Duragesic, Tylenol, and prn Roxicodone. Qualifiers: Encounter type: initial encounter Zone of sacrum fracture: unspecified portion of sacrum Fracture type: closed Qualified Code(s): S32.10XA - Unspecified fracture of sacrum, initial encounter for closed fracture (3) Hypertension Current Visit: No Status: Chronic Assessment and plan: November 03. Blood pressure stable off medication. Continue to monitor. Qualifiers: Hypertension type: essential hypertension Qualified Code(s): I10 - Essential (primary) hypertension (4) Anxiety disorder Current Visit: No Status: Chronic Assessment and plan: November 03. Continue prn hydroxyzine. Qualifiers: Anxiety disorder type: generalized anxiety disorder Qualified Code(s): F41.1 - Generalized anxiety disorder (5) Anemia Current Visit: No Status: Chronic Assessment and plan: November 03. Anemia testing showed iron 11, transferrin saturation 5%, transferrin 153, ferritin 206, B12 144, and folate 16.4. She was given a B12 injection and started on oral B12 supplement, ferrous sulfate, and ascorbic acid. Qualifiers: Anemia type: unspecified type Qualified Code(s): D64.9 - Anemia, unspecified (6) CKD (chronic kidney disease) stage 3, GFR 30-59 ml/min Current Visit: No Status: Chronic Assessment and plan: November 03. BUN and creatinine stable today at 24 and 1.02 respectively with estimated GFR 52. Continue to monitor renal indices. (7) LUZ (acute kidney injury) Current Visit: No Status: Acute Assessment and plan: November 03. As above - Subjective Interval history: November 03. She was hospitalized at [facility] acute-care October 29- after a fall at home sustaining displaced fracture of R sacrum, R inferior pubic ramus, and R superior pubic ramus. She had PT and OT evaluations with ongoing intervention. She was recommended NWB by orthopedists for at least 2 weeks. She has no new complaints today. - Constitutional Vitals: Temp Pulse Resp BP Pulse Ox 97.7 F 83 16 129/71 92 11/03/18 08:02 11/03/18 08:02 11/03/18 08:02 11/03/18 08:02 11/03/18 08:02 Exam: She is resting comfortably in bed and appears in no acute distress. Her affect is bright and cheerful. I reviewed her medications and lab results. Internal Medicine: Result - Labs CBC & Chem 7: 11/03/18 05:06 11/03/18 05:06 Labs: Short CBC 11/03/18 Range/Units 05:06 WBC 7.9 (4.3-11.1) K/mcL Hgb 8.1 L (11.5-15.4) g/dL Hct 25.0 L (35.3-44.9) % Plt Count 253 (140-400) K/mcL Neutrophils # 6.0 (1.6-8.9) K/mcL BMP 11/03/18 05:06 Sodium 140 Potassium 4.6 Chloride 102 Carbon Dioxide 31 H BUN 24 H Creatinine 1.02 Glucose 98 Calcium 9.0 Consult Discharge Plan - Plan Referrals: Kath Patton MD [Primary Care Provider] - 1 week
[2018-11-04] MEDS: *HR* OxyCODONE Immed Rel 5 MG TABLET PO PRN ×3 (03:14→13:38)
[2018-11-04] MEDS: hydrOXYzine pamoate 25 MG CAPSULE PO PRN ×3 (03:14→20:07)
[2018-11-04] MEDS: Multivit/Ca/Min/Fe/FA 1 TAB TABLET PO SCH (08:46)
[2018-11-04] MEDS: Cholecalciferol (D-3) 1,000 UNIT (25MCG) TABLET PO SCH (08:46)
[2018-11-04] MEDS: *HR* FentaNYL PATCH 25 MCG PATCH TD SCH (08:46)
[2018-11-04] MEDS: Ascorbic Acid 500 MG TABLET PO SCH (08:46)
[2018-11-04] MEDS: Cyanocobalamin (B-12) 1,000 MCG TABLET PO SCH (08:46)
[2018-11-04] MEDS: PRESERVISION AREDS 2 FORMULA PO SCH ×2 (09:08→20:08)
--- NOTE | 2018-11-04 11:04 | Internal Med Progress Note ---
Date of Encounter: 11/04/18 Time of Encounter: 10:57 - Assessment and plan (1) Closed fracture of pubic ramus Current Visit: No Status: Acute Assessment and plan: November 03. Continue PT/OT, Duragesic, Tylenol, and prn Roxicodone. Qualifiers: Encounter type: initial encounter Laterality: right Qualified Code(s): S32.591A - Other specified fracture of right pubis, initial encounter for closed fracture (2) Fracture of sacrum Current Visit: No Status: Acute Assessment and plan: November 03. Continue PT/OT, Duragesic, Tylenol, and prn Roxicodone. Qualifiers: Encounter type: initial encounter Zone of sacrum fracture: unspecified portion of sacrum Fracture type: closed Qualified Code(s): S32.10XA - Unspecified fracture of sacrum, initial encounter for closed fracture (3) Hypertension Current Visit: No Status: Chronic Assessment and plan: November 03. Blood pressure stable off medication. Continue to monitor. Qualifiers: Hypertension type: essential hypertension Qualified Code(s): I10 - Essential (primary) hypertension (4) Anxiety disorder Current Visit: No Status: Chronic Assessment and plan: November 03. Continue prn hydroxyzine. Qualifiers: Anxiety disorder type: generalized anxiety disorder Qualified Code(s): F41.1 - Generalized anxiety disorder (5) Anemia Current Visit: No Status: Chronic Assessment and plan: November 03. Anemia testing showed iron 11, transferrin saturation 5%, transferrin 153, ferritin 206, B12 144, and folate 16.4. She was given a B12 injection and started on oral B12 supplement, ferrous sulfate, and ascorbic acid. November 04. Continue to monitor CBC periodically. Qualifiers: Anemia type: unspecified type Qualified Code(s): D64.9 - Anemia, unspecified (6) CKD (chronic kidney disease) stage 3, GFR 30-59 ml/min Current Visit: No Status: Chronic Assessment and plan: November 03. BUN and creatinine stable today at 24 and 1.02 respectively with estimated GFR 52. Continue to monitor renal indices. (7) LUZ (acute kidney injury) Current Visit: No Status: Acute Assessment and plan: November 03. As above - Subjective Interval history: November 03. She was hospitalized at [facility] acute-care October 29- after a fall at home sustaining displaced fracture of R sacrum, R inferior pubic ramus, and R superior pubic ramus. She had PT and OT evaluations with ongoing intervention. She was recommended NWB by orthopedists for at least 2 weeks. She has no new complaints today. November 04. She was experiencing more pain earlier today. She states she has no pain at rest but only on movement. - Constitutional Vitals: Temp Pulse Resp BP Pulse Ox 98.2 F 82 14 115/63 98 11/04/18 07:46 11/04/18 07:46 11/04/18 07:46 11/04/18 07:46 11/04/18 07:46 Exam: She is resting comfortably in bed at present time and appears in no acute distress. Her affect is overall cheerful. She has no extremity edema. I reviewed her medications and lab results. Internal Medicine: Result - Labs CBC & Chem 7: 11/03/18 05:06 11/03/18 05:06 Consult Discharge Plan - Plan Referrals: Kath Patton MD [Primary Care Provider] - 1 week
[2018-11-04] MEDS: MOM Conc 10 ML UD.LIQ PO SCH (16:57)
[2018-11-05] MEDS: *HR* OxyCODONE Immed Rel 5 MG TABLET PO PRN ×4 (00:01→21:32)
[2018-11-05] MEDS: Ascorbic Acid 500 MG TABLET PO SCH (06:33)
[2018-11-05] MEDS: Cyanocobalamin (B-12) 1,000 MCG TABLET PO SCH (09:09)
[2018-11-05] MEDS: Cholecalciferol (D-3) 1,000 UNIT (25MCG) TABLET PO SCH (09:10)
[2018-11-05] MEDS: Multivit/Ca/Min/Fe/FA 1 TAB TABLET PO SCH (09:10)
[2018-11-05] MEDS: hydrOXYzine pamoate 25 MG CAPSULE PO PRN ×2 (09:13→20:53)
[2018-11-05] MEDS: PRESERVISION AREDS 2 FORMULA PO SCH ×2 (09:13→20:56)
[2018-11-06] MEDS: Ascorbic Acid 500 MG TABLET PO SCH (09:34)
[2018-11-06] MEDS: Cholecalciferol (D-3) 1,000 UNIT (25MCG) TABLET PO SCH (09:34)
[2018-11-06] MEDS: hydrOXYzine pamoate 25 MG CAPSULE PO PRN ×2 (09:34→20:15)
[2018-11-06] MEDS: PRESERVISION AREDS 2 FORMULA PO SCH ×2 (09:34→20:15)
[2018-11-06] MEDS: Cyanocobalamin (B-12) 1,000 MCG TABLET PO SCH (09:35)
[2018-11-06] MEDS: Multivit/Ca/Min/Fe/FA 1 TAB TABLET PO SCH (09:35)
[2018-11-06] MEDS: *HR* OxyCODONE Immed Rel 5 MG TABLET PO PRN ×3 (09:35→20:15)
--- NOTE | 2018-11-06 15:31 | Internal Med Progress Note ---
Date of Encounter: 11/06/18 Time of Encounter: 15:24 - Assessment and plan (1) Closed fracture of pubic ramus Current Visit: No Status: Acute Assessment and plan: November 03. Continue PT/OT, Duragesic, Tylenol, and prn Roxicodone. November 06. Continue present Rx. She will remain NWB through 11/14/2018. Qualifiers: Encounter type: initial encounter Laterality: right Qualified Code(s): S32.591A - Other specified fracture of right pubis, initial encounter for closed fracture (2) Fracture of sacrum Current Visit: No Status: Acute Assessment and plan: November 03. Continue PT/OT, Duragesic, Tylenol, and prn Roxicodone. Qualifiers: Encounter type: initial encounter Zone of sacrum fracture: unspecified portion of sacrum Fracture type: closed Qualified Code(s): S32.10XA - Unspecified fracture of sacrum, initial encounter for closed fracture (3) Hypertension Current Visit: No Status: Chronic Assessment and plan: November 03. Blood pressure stable off medication. Continue to monitor. Qualifiers: Hypertension type: essential hypertension Qualified Code(s): I10 - Ess ential (primary) hypertension (4) Anxiety disorder Current Visit: No Status: Chronic Assessment and plan: November 03. Continue prn hydroxyzine. Qualifiers: Anxiety disorder type: generalized anxiety disorder Qualified Code(s): F41.1 - Generalized anxiety disorder (5) Anemia Current Visit: No Status: Chronic Assessment and plan: November 03. Anemia testing showed iron 11, transferrin saturation 5%, transferrin 153, ferritin 206, B12 144, and folate 16.4. She was given a B12 injection and started on oral B12 supplement, ferrous sulfate, and ascorbic acid. November 04. Continue to monitor CBC periodically. November 06. Recheck labs in a.m. Qualifiers: Anemia type: unspecified type Qualified Code(s): D64.9 - Anemia, unspecified (6) CKD (chronic kidney disease) stage 3, GFR 30-59 ml/min Current Visit: No Status: Chronic Assessment and plan: November 03. BUN and creatinine stable today at 24 and 1.02 respectively with estimated GFR 52. Continue to monitor renal indices. November 06. Recheck labs in a.m. (7) LUZ (acute kidney injury) Current Visit: No Status: Acute Assessment and plan: November 03. As above - Subjective Interval history: November 03. She was hospitalized at [facility] acute-care October 29- after a fall at home sustaining displaced fracture of R sacrum, R inferior pubic ramus, and R superior pubic ramus. She had PT and OT evaluations with ongoing intervention. She was recommended NWB by orthopedists for at least 2 weeks. She has no new complaints today. November 04. She was experiencing more pain earlier today. She states she has no pain at rest but only on movement. November 06. She has no new complaints. She denies pain at the present time. - Constitutional Vitals: Temp Pulse Resp BP Pulse Ox 98.6 F 86 16 112/57 97 11/06/18 06:30 11/06/18 06:30 11/06/18 06:30 11/06/18 06:30 11/06/18 06:30 Exam: She is resting comfortably in bed and appears in no acute distress. Her affect is bright and cheerful. Extremities show no pitting edema. I reviewed her medications and lab results. Internal Medicine: Result - Labs CBC & Chem 7: 11/03/18 05:06 11/03/18 05:06 Consult Discharge Plan - Plan Referrals: Kath Patton MD [Primary Care Provider] - 1 week
[2018-11-06] MEDS: MOM Conc 10 ML UD.LIQ PO SCH (16:19)
[2018-11-07] MEDS: hydrOXYzine pamoate 25 MG CAPSULE PO PRN (05:09)
[2018-11-07] MEDS: *HR* OxyCODONE Immed Rel 5 MG TABLET PO PRN ×3 (05:09→17:02)
[2018-11-07] MEDS: Ascorbic Acid 500 MG TABLET PO SCH (05:09)
[2018-11-07 06:57] LABS: Basophils % 0.6 %; Eosinophils # 0.1 K/mcL (0.0-0.6); Eosinophils % 2.4 %; Hematocrit 27.8 % (35.3-44.9); Hemoglobin 8.4 g/dL (11.5-15.4); Immature Granulocytes % 0.2 % (0-4); Lymphocytes # 0.9 K/mcL (0.6-4.6); Mean Corpuscular HGB Conc 30.2 g/dL (31.6-35.5); Mean Corpuscular Hemoglobin 30.7 pg (28.0-33.3); Mean Corpuscular Volume 101.5 fL (83.0-100.0); Mean Platelet Volume 9.4 fL (9.4-12.4); Monocytes # 0.6 K/mcL (0.0-1.3); Monocytes % 10.3 %; Neutrophils # 3.8 K/mcL (1.6-8.9); Platelet Count 308 K/mcL (140-400); Red Blood Count 2.74 M/mcL (3.82-4.97); Red Cell Distribution Width 14.5 % (11.5-14.5); Segmented Neutrophils % 70.5 %; White Blood Count 5.4 K/mcL (4.3-11.1)
[2018-11-07 07:08] LABS: Calcium 8.7 mg/dL (8.6-10.3); Potassium 3.8 mEq/L (3.5-5.1)
[2018-11-07] MEDS: *HR* FentaNYL PATCH 25 MCG PATCH TD SCH (08:18)
[2018-11-07] MEDS: Multivit/Ca/Min/Fe/FA 1 TAB TABLET PO SCH (08:18)
[2018-11-07] MEDS: Cholecalciferol (D-3) 1,000 UNIT (25MCG) TABLET PO SCH (08:19)
[2018-11-07] MEDS: Cyanocobalamin (B-12) 1,000 MCG TABLET PO SCH (08:19)
[2018-11-07] MEDS: PRESERVISION AREDS 2 FORMULA PO SCH ×2 (08:20→21:17)
[2018-11-08] MEDS: *HR* OxyCODONE Immed Rel 5 MG TABLET PO PRN ×2 (06:28→23:47)
[2018-11-08] MEDS: Ascorbic Acid 500 MG TABLET PO SCH (06:28)
[2018-11-08] MEDS: Cholecalciferol (D-3) 1,000 UNIT (25MCG) TABLET PO SCH (07:55)
[2018-11-08] MEDS: Multivit/Ca/Min/Fe/FA 1 TAB TABLET PO SCH (07:55)
[2018-11-08] MEDS: Cyanocobalamin (B-12) 1,000 MCG TABLET PO SCH (07:55)
[2018-11-08] MEDS: PRESERVISION AREDS 2 FORMULA PO SCH ×2 (07:59→19:47)
--- NOTE | 2018-11-08 10:33 | Internal Med Progress Note ---
Date of Encounter: 11/08/18 Time of Encounter: 10:25 - Assessment and plan (1) Closed fracture of pubic ramus Current Visit: No Status: Acute Assessment and plan: November 03. Continue PT/OT, Duragesic, Tylenol, and prn Roxicodone. November 06. Continue present Rx. She will remain NWB through 11/14/2018. Qualifiers: Encounter type: initial encounter Laterality: right Qualified Code(s): S32.591A - Other specified fracture of right pubis, initial encounter for closed fracture (2) Fracture of sacrum Current Visit: No Status: Acute Assessment and plan: November 03. Continue PT/OT, Duragesic, Tylenol, and prn Roxicodone. Qualifiers: Encounter type: initial encounter Zone of sacrum fracture: unspecified portion of sacrum Fracture type: closed Qualified Code(s): S32.10XA - Unspecified fracture of sacrum, initial encounter for closed fracture (3) Hypertension Current Visit: No Status: Chronic Assessment and plan: November 03. Blood pressure stable off medication. Continue to monitor. Qualifiers: Hypertension type: essential hypertension Qualified Code(s): I10 - Ess ential (primary) hypertension (4) Anxiety disorder Current Visit: No Status: Chronic Assessment and plan: November 03. Continue prn hydroxyzine. Qualifiers: Anxiety disorder type: generalized anxiety disorder Qualified Code(s): F41.1 - Generalized anxiety disorder (5) Anemia Current Visit: No Status: Chronic Assessment and plan: November 03. Anemia testing showed iron 11, transferrin saturation 5%, transferrin 153, ferritin 206, B12 144, and folate 16.4. She was given a B12 injection and started on oral B12 supplement, ferrous sulfate, and ascorbic acid. November 04. Continue to monitor CBC periodically. November 06. Recheck labs in a.m. November 08. Hemoglobin minimally changed at 8.4 yesterday. Continue to monitor periodically. Qualifiers: Anemia type: unspecified type Qualified Code(s): D64.9 - Anemia, unspecified (6) CKD (chronic kidney disease) stage 3, GFR 30-59 ml/min Current Visit: No Status: Chronic Assessment and plan: November 03. BUN and creatinine stable today at 24 and 1.02 respectively with estimated GFR 52. Continue to monitor renal indices. November 06. Recheck labs in a.m. (7) LUZ (acute kidney injury) Current Visit: No Status: Acute Assessment and plan: November 03. As above - Subjective Interval history: November 03. She was hospitalized at [facility] acute-care October 29- after a fall at home sustaining displaced fracture of R sacrum, R inferior pubic ramus, and R superior pubic ramus. She had PT and OT evaluations with ongoing intervention. She was recommended NWB by orthopedists for at least 2 weeks. She has no new complaints today. November 04. She was experiencing more pain earlier today. She states she has no pain at rest but only on movement. November 06. She has no new complaints. She denies pain at the present time. November 08. She has no new complaints. She states she is having some pain in her right pelvic area but it has gradually lessened over time. - Constitutional Vitals: Temp Pulse Resp BP Pulse Ox 98.2 F 79 16 119/55 98 11/08/18 06:27 11/08/18 06:27 11/08/18 06:27 11/08/18 06:27 11/08/18 08:09 Exam: She is resting comfortably in bed and appears in no acute distress. Her affect is overall cheerful. Heart is regular with occasional ectopic beat. Lungs are clear anteriorly. Extremities show no pitting edema. I reviewed her medications and lab results. Internal Medicine: Result - Labs CBC & Chem 7: 11/07/18 06:25 11/07/18 06:25 Consult Discharge Plan - Plan Referrals: Kath Patton MD [Primary Care Provider] - 1 week
[2018-11-08] MEDS: MOM Conc 10 ML UD.LIQ PO SCH (16:05)
[2018-11-09] MEDS: hydrOXYzine pamoate 25 MG CAPSULE PO PRN (01:37)
[2018-11-09] MEDS: *HR* OxyCODONE Immed Rel 5 MG TABLET PO PRN (05:02)
[2018-11-09] MEDS: Ascorbic Acid 500 MG TABLET PO SCH (05:02)
[2018-11-09 07:29] LABS: Basophils % 0.5 %; Eosinophils # 0.2 K/mcL (0.0-0.6); Eosinophils % 2.9 %; Hemoglobin 8.3 g/dL (11.5-15.4); Immature Granulocytes % 0.4 % (0-4); Lymphocytes # 1.2 K/mcL (0.6-4.6); Lymphocytes % 15.1 %; Mean Corpuscular HGB Conc 33.2 g/dL (31.6-35.5); Mean Corpuscular Hemoglobin 30.6 pg (28.0-33.3); Mean Corpuscular Volume 92.3 fL (83.0-100.0); Mean Platelet Volume 9.8 fL (9.4-12.4); Monocytes # 0.7 K/mcL (0.0-1.3); Monocytes % 8.8 %; Neutrophils # 5.7 K/mcL (1.6-8.9); Platelet Count 356 K/mcL (140-400); Red Blood Count 2.71 M/mcL (3.82-4.97); Red Cell Distribution Width 13.7 % (11.5-14.5); Segmented Neutrophils % 72.3 %; White Blood Count 7.9 K/mcL (4.3-11.1)
[2018-11-09 07:59] LABS: Calcium 8.9 mg/dL (8.6-10.3); Potassium 3.2 mEq/L (3.5-5.1)
[2018-11-09] MEDS: Cholecalciferol (D-3) 1,000 UNIT (25MCG) TABLET PO SCH (09:30)
[2018-11-09] MEDS: Multivit/Ca/Min/Fe/FA 1 TAB TABLET PO SCH (09:30)
[2018-11-09] MEDS: Cyanocobalamin (B-12) 1,000 MCG TABLET PO SCH (09:30)
[2018-11-09] MEDS: PRESERVISION AREDS 2 FORMULA PO SCH ×2 (09:32→20:51)
[2018-11-10] MEDS: hydrOXYzine pamoate 25 MG CAPSULE PO PRN ×2 (00:30→19:52)
[2018-11-10] MEDS: *HR* OxyCODONE Immed Rel 5 MG TABLET PO PRN ×2 (00:30→19:52)
[2018-11-10] MEDS: Ascorbic Acid 500 MG TABLET PO SCH (06:32)
[2018-11-10] MEDS: Cholecalciferol (D-3) 1,000 UNIT (25MCG) TABLET PO SCH (08:03)
[2018-11-10] MEDS: PRESERVISION AREDS 2 FORMULA PO SCH ×2 (08:04→19:52)
[2018-11-10] MEDS: Cyanocobalamin (B-12) 1,000 MCG TABLET PO SCH (08:04)
[2018-11-10] MEDS: *HR* FentaNYL PATCH 25 MCG PATCH TD SCH (08:04)
[2018-11-10] MEDS: Multivit/Ca/Min/Fe/FA 1 TAB TABLET PO SCH (08:04)
[2018-11-10] MEDS: MOM Conc 10 ML UD.LIQ PO SCH (17:09)
[2018-11-11] MEDS: Ascorbic Acid 500 MG TABLET PO SCH (06:40)
[2018-11-11] MEDS: Multivit/Ca/Min/Fe/FA 1 TAB TABLET PO SCH (07:55)
[2018-11-11] MEDS: Cholecalciferol (D-3) 1,000 UNIT (25MCG) TABLET PO SCH (07:55)
[2018-11-11] MEDS: *HR* OxyCODONE Immed Rel 5 MG TABLET PO PRN ×2 (07:55→22:54)
[2018-11-11] MEDS: Cyanocobalamin (B-12) 1,000 MCG TABLET PO SCH (07:56)
[2018-11-11] MEDS: PRESERVISION AREDS 2 FORMULA PO SCH ×2 (07:58→19:39)
--- NOTE | 2018-11-11 09:39 | Internal Med Progress Note ---
Date of Encounter: 11/11/18 Time of Encounter: 09:30 - Assessment and plan (1) Closed fracture of pubic ramus Current Visit: No Status: Acute Assessment and plan: November 03. Continue PT/OT, Duragesic, Tylenol, and prn Roxicodone. November 06. Continue present Rx. She will remain NWB through 11/14/2018. November 11. Follow-up with orthopedist 11/14/2018 to determine weightbearing status Qualifiers: Encounter type: initial encounter Laterality: right Qualified Code(s): S32.591A - Other specified fracture of right pubis, initial encounter for closed fracture (2) Fracture of sacrum Current Visit: No Status: Acute Assessment and plan: November 03. Continue PT/OT, Duragesic, Tylenol, and prn Roxicodone. Qualifiers: Encounter type: initial encounter Zone of sacrum fracture: unspecified portion of sacrum Fracture type: closed Qualified Code(s): S32.10XA - Unspecified fracture of sacrum, initial encounter for closed fracture (3) Hypertension Current Visit: No Status: Chronic Assessment and plan: November 03. Blood pressure stable off medication. Continue to monitor. Qualifiers: Hypertension type: essential hypertension Qualified Code(s): I10 - Essential (primary) hypertension (4) Anxiety disorder Current Visit: No Status: Chronic Assessment and plan: November 03. Continue prn hydroxyzine. Qualifiers: Anxiety disorder type: generalized anxiety disorder Qualified Code(s): F41.1 - Generalized anxiety disorder (5) Anemia Current Visit: No Status: Chronic Assessment and plan: November 03. Anemia testing showed iron 11, transferrin saturation 5%, transferrin 153, ferritin 206, B12 144, and folate 16.4. She was given a B12 injection and started on oral B12 supplement, ferrous sulfate, and ascorbic a manish. November 04. Continue to monitor CBC periodically. November 06. Recheck labs in a.m. November 08. Hemoglobin minimally changed at 8.4 yesterday. Continue to monitor periodically. November 11. Hemoglobin stable at 8.3. Continue to monitor periodically. Qualifiers: Anemia type: unspecified type Qualified Code(s): D64.9 - Anemia, unspecified (6) CKD (chronic kidney disease) stage 3, GFR 30-59 ml/min Current Visit: No Status: Chronic Assessment and plan: November 03. BUN and creatinine stable today at 24 and 1.02 respectively with estimated GFR 52. Continue to monitor renal indices. November 06. Recheck labs in a.m. November 11. BUN and creatinine stable at 38 and 1.20. Continue to monitor periodically (7) LUZ (acute kidney injury) Current Visit: No Status: Acute Assessment and plan: November 03. As above - Subjective Interval history: November 03. She was hospitalized at [facility] acute-care October 29- after a fall at home sustaining displaced fracture of R sacrum, R inferior pubic ramus, and R superior pubic ramus. She had PT and OT evaluations with ongoing in tervention. She was recommended NWB by orthopedists for at least 2 weeks. She has no new complaints today. November 04. She was experiencing more pain earlier today. She states she has no pain at rest but only on movement. November 06. She has no new complaints. She denies pain at the present time. November 08. She has no new complaints. She states she is having some pain in her right pelvic area but it has gradually lessened over time. November 11. She has no new complaints. - Constitutional Vitals: Temp Pulse Resp BP Pulse Ox 98.4 F 74 18 118/66 97 11/11/18 06:29 11/11/18 06:29 11/11/18 06:29 11/11/18 06:29 11/11/18 06:29 Exam: She is sitting in wheelchair at bedside. She complains of pain in her right pelvis area on movement. Her affect is overall cheerful. I reviewed her medications and lab results. Internal Medicine: Result - Labs CBC & Chem 7: 11/09/18 06:31 11/09/18 06:31 Consult Discharge Plan - Plan Referrals: Kath Patton MD [Primary Care Provider] - 1 week
[2018-11-11] MEDS: hydrOXYzine pamoate 25 MG CAPSULE PO PRN (22:54)
[2018-11-12] MEDS: Ascorbic Acid 500 MG TABLET PO SCH (06:35)
[2018-11-12] MEDS: Cyanocobalamin (B-12) 1,000 MCG TABLET PO SCH (09:04)
[2018-11-12] MEDS: Cholecalciferol (D-3) 1,000 UNIT (25MCG) TABLET PO SCH (09:04)
[2018-11-12] MEDS: PRESERVISION AREDS 2 FORMULA PO SCH ×2 (09:05→22:26)
[2018-11-12] MEDS: Multivit/Ca/Min/Fe/FA 1 TAB TABLET PO SCH (09:05)
[2018-11-12] MEDS: MOM Conc 10 ML UD.LIQ PO SCH (16:35)
[2018-11-13] MEDS: Ascorbic Acid 500 MG TABLET PO SCH (05:28)
[2018-11-13] MEDS: *HR* FentaNYL PATCH 25 MCG PATCH TD SCH (09:44)
[2018-11-13] MEDS: PRESERVISION AREDS 2 FORMULA PO SCH ×2 (09:45→23:16)
[2018-11-13] MEDS: Multivit/Ca/Min/Fe/FA 1 TAB TABLET PO SCH (09:45)
[2018-11-13] MEDS: Cholecalciferol (D-3) 1,000 UNIT (25MCG) TABLET PO SCH (09:45)
[2018-11-13] MEDS: Cyanocobalamin (B-12) 1,000 MCG TABLET PO SCH (09:45)
--- NOTE | 2018-11-13 11:22 | Internal Med Progress Note ---
Date of Encounter: 11/13/18 Time of Encounter: 11:15 - Assessment and plan (1) Closed fracture of pubic ramus Current Visit: No Status: Acute Assessment and plan: November 03. Continue PT/OT, Duragesic, Tylenol, and prn Roxicodone. November 06. Continue present Rx. She will remain NWB through 11/14/2018. November 11. Follow-up with orthopedist 11/14/2018 to determine weightbearing status November 13. Follow-up with orthopedist tomorrow. Qualifiers: Encounter type: initial encounter Laterality: right Qualified Code(s): S32.591A - Other specified fracture of right pubis, initial encounter for closed fracture (2) Fracture of sacrum Current Visit: No Status: Acute Assessment and plan: November 03. Continue PT/OT, Duragesic, Tylenol, and prn Roxicodone. November 13. Follow-up with orthopedist tomorrow. Qualifiers: Encounter type: initial encounter Zone of sacrum fracture: unspecified portion of sacrum Fracture type: closed Qualified Code(s): S32.10XA - Unspecified fracture of sacrum, initial encounter for closed fracture (3) Hypertension Current Visit: No Status: Chronic Assessment and plan: November 03. Blood pressure stable off medication. Continue to monitor. Qualifiers: Hypertension type: essential hypertension Qualified Code(s): I10 - Essential (primary) hypertension (4) Anxiety disorder Current Visit: No Status: Chronic Assessment and plan: November 03. Continue prn hydroxyzine. Qualifiers: Anxiety disorder type: generalized anxiety disorder Qualified Code(s): F41.1 - Generalized anxiety disorder (5) Anemia Current Visit: No Status: Chronic Assessment and plan: November 03. Anemia testing showed iron 11, transferrin saturation 5%, transferrin 153, ferritin 206, B12 144, and folate 16.4. She was given a B12 injection and started on oral B12 supplement, ferrous sulfate, and ascorbic acid. November 04. Continue to monitor CBC periodically. November 06. Recheck labs in a.m. November 08. Hemoglobin minimally changed at 8.4 yesterday. Continue to monitor periodically. November 11. Hemoglobin stable at 8.3. Continue to monitor periodically. November 13. Recheck labs in a.m. Qualifiers: Anemia type: unspecified type Qualified Code(s): D64.9 - Anemia, unspecified (6) CKD (chronic kidney disease) stage 3, GFR 30-59 ml/min Current Visit: No Status: Chronic Assessment and plan: November 03. BUN and creatinine stable today at 24 and 1.02 respectively with estimated GFR 52. Continue to monitor renal indices. November 06. Recheck labs in a.m. November 11. BUN and creatinine stable at 38 and 1.20. Continue to monitor periodically November 13. Recheck labs in a.m. (7) LUZ (acute kidney injury) Current Visit: No Status: Acute Assessment and plan: November 03. As above November 13. Recheck labs in a.m. - Subjective Interval history: November 03. She was hospitalized at [facility] acute-care October 29- after a fall at home sustaining displaced fracture of R sacrum, R inferior pubic ramus, and R superior pubic ramus. She had PT and OT evaluations with ongoing intervention. She was recommended NWB by orthopedists for at least 2 weeks. She has no new complaints today. November 04. She was experiencing more pain earlier today. She states she has no pain at rest but only on movement. November 06. She has no new complaints. She denies pain at the present time. November 08. She has no new complaints. She states she is having some pain in her right pelvic area but it has gradually lessened over time. November 11. She has no new complaints. November 13. She has no new complaints. She denies pain or dyspnea. - Constitutional Vitals: Temp Pulse Resp BP Pulse Ox 98.5 F 92 16 123/71 97 11/13/18 08:55 11/13/18 08:55 11/12/18 18:15 11/13/18 08:55 11/13/18 08:55 Exam: She is lying in bed and appears restless. Heart is regular with rate approximately 104/m. Lungs are clear. Extremities show no pitting edema. I reviewed her medications and lab results. Internal Medicine: Result - Labs CBC & Chem 7: 11/09/18 06:31 11/09/18 06:31 Consult Discharge Plan - Plan Referrals: Kath Patton MD [Primary Care Provider] - 1 week
[2018-11-14] MEDS: Ascorbic Acid 500 MG TABLET PO SCH (06:05)
[2018-11-14] MEDS: *HR* Enoxaparin 30 MG/0.3 ML SYRINGE SQ SCH (06:05)
[2018-11-14 06:06] LABS: Basophils # 0.1 K/mcL (0.0-0.2); Eosinophils # 0.1 K/mcL (0.0-0.6); Hematocrit 27.6 % (35.3-44.9); Immature Granulocytes % 0.3 % (0-4); Lymphocytes # 1.8 K/mcL (0.6-4.6); Lymphocytes % 25.3 %; Mean Corpuscular HGB Conc 32.6 g/dL (31.6-35.5); Mean Corpuscular Hemoglobin 30.4 pg (28.0-33.3); Mean Corpuscular Volume 93.2 fL (83.0-100.0); Mean Platelet Volume 9.5 fL (9.4-12.4); Monocytes # 0.5 K/mcL (0.0-1.3); Monocytes % 6.9 %; Neutrophils # 4.6 K/mcL (1.6-8.9); Platelet Count 455 K/mcL (140-400); Red Blood Count 2.96 M/mcL (3.82-4.97); Red Cell Distribution Width 13.7 % (11.5-14.5); Segmented Neutrophils % 64.5 %; White Blood Count 7.1 K/mcL (4.3-11.1)
[2018-11-14 06:21] LABS: BUN/Creatinine Ratio 33 (6-26); Blood Urea Nitrogen 33 mg/dL (8-23); Calcium 9.1 mg/dL (8.6-10.3); Carbon Dioxide 27 mEq/L (23-29); Chloride 104 mEq/L (98-107); Glucose 95 mg/dL (70-105); Osmolality,Calculated 299 (280-300); Potassium 4.2 mEq/L (3.5-5.1); Sodium 141 mEq/L (136-145); eGFR For African Americans > 60 (> 60); eGFR For Non-African Americans 54 (> 60)
[2018-11-14] MEDS: Cholecalciferol (D-3) 1,000 UNIT (25MCG) TABLET PO SCH (07:40)
[2018-11-14] MEDS: Cyanocobalamin (B-12) 1,000 MCG TABLET PO SCH (07:40)
[2018-11-14] MEDS: Multivit/Ca/Min/Fe/FA 1 TAB TABLET PO SCH (07:40)
[2018-11-14] MEDS: PRESERVISION AREDS 2 FORMULA PO SCH ×2 (07:42→20:41)
[2018-11-14] MEDS: MOM Conc 10 ML UD.LIQ PO SCH (16:05)
[2018-11-15] MEDS: *HR* OxyCODONE Immed Rel 5 MG TABLET PO PRN ×2 (02:22→20:00)
[2018-11-15] MEDS: hydrOXYzine pamoate 25 MG CAPSULE PO PRN ×2 (02:22→20:00)
[2018-11-15] MEDS: Ascorbic Acid 500 MG TABLET PO SCH (06:43)
[2018-11-15] MEDS: *HR* Enoxaparin 30 MG/0.3 ML SYRINGE SQ SCH (06:43)
[2018-11-15] MEDS: Multivit/Ca/Min/Fe/FA 1 TAB TABLET PO SCH (07:47)
[2018-11-15] MEDS: Cholecalciferol (D-3) 1,000 UNIT (25MCG) TABLET PO SCH (07:47)
[2018-11-15] MEDS: PRESERVISION AREDS 2 FORMULA PO SCH ×2 (07:48→20:01)
[2018-11-15] MEDS: Cyanocobalamin (B-12) 1,000 MCG TABLET PO SCH (07:48)
--- NOTE | 2018-11-15 12:40 | Internal Med Progress Note ---
Date of Encounter: 11/15/18 Time of Encounter: 12:33 - Assessment and plan (1) Closed fracture of pubic ramus Current Visit: No Status: Acute Assessment and plan: November 03. Continue PT/OT, Duragesic, Tylenol, and prn Roxicodone. November 06. Continue present Rx. She will remain NWB through 11/14/2018. November 11. Follow-up with orthopedist 11/14/2018 to determine weightbearing status November 13. Follow-up with orthopedist tomorrow. November 15. She is to remain NWB at this time. Follow-up with orthopedist as directed. Qualifiers: Encounter type: initial encounter Laterality: right Qualified Code(s): S32.591A - Other specified fracture of right pubis, initial encounter for closed fracture (2) Fracture of sacrum Current Visit: No Status: Acute Assessment and plan: November 03. Continue PT/OT, Duragesic, Tylenol, and prn Roxicodone. November 13. Follow-up with orthopedist tomorrow. November 15. Continue NWB status as per above. Qualifiers: Encounter type: initial encounter Zone of sacrum fracture: unspecified portion of sacrum Fracture type: closed Qualified Code(s): S32.10XA - Unspecified fracture of sacrum, initial encounter for closed fracture (3) Hypertension Current Visit: No Status: Chronic Assessment and plan: November 03. Blood pressure stable off medication. Continue to monitor. Qualifiers: Hypertension type: essential hypertension Qualified Code(s): I10 - Essential (primary) hypertension (4) Anxiety disorder Current Visit: No Status: Chronic Assessment and plan: November 03. Continue prn hydroxyzine. Qualifiers: Anxiety disorder type: generalized anxiety disorder Qualified Code(s): F41.1 - Generalized anxiety disorder (5) Anemia Current Visit: No Status: Chronic Assessment and plan: November 03. Anemia testing showed iron 11, transferrin saturation 5%, transfe rrin 153, ferritin 206, B12 144, and folate 16.4. She was given a B12 injection and started on oral B12 supplement, ferrous sulfate, and ascorbic acid. November 04. Continue to monitor CBC periodically. November 06. Recheck labs in a.m. November 08. Hemoglobin minimally changed at 8.4 yesterday. Continue to monitor periodically. November 11. Hemoglobin stable at 8.3. Continue to monitor periodically. November 13. Recheck labs in a.m. November 15. Hemoglobin improved to 9.0. Continue B12, ferrous sulfate, ascorbic acid, and monitor periodically. Qualifiers: Anemia type: unspecified type Qualified Code(s): D64.9 - Anemia, unspecified (6) CKD (chronic kidney disease) stage 3, GFR 30-59 ml/min Current Visit: No Status: Chronic Assessment and plan: November 03. BUN and creatinine stable today at 24 and 1.02 respectively with estimated GFR 52. Continue to monitor renal indices. November 06. Recheck labs in a.m. November 11. BUN and creatinine stable at 38 and 1.20. Continue to monitor periodically November 13. Recheck labs in a.m. November 15. BUN and creatinine improved at 33 and 0.99 respectively with estimated GFR 54. Continue to monitor periodically. (7) LUZ (acute kidney injury) Current Visit: No Status: Acute Assessment and plan: November 03. As above November 13. Recheck labs in a.m. - Subjective Interval history: November 03. She was hospitalized at [facility] acute-care October 29- after a fall at home sustaining displaced fracture of R sacrum, R inferior pubic ramus, and R superior pubic ramus. She had PT and OT evaluations with ongoing intervention. She was recommended NWB by orthopedists for at least 2 weeks. She has no new complaints today. November 04. She was experiencing more pain earlier today. She states she has no pain at rest but only on movement. November 06. She has no new complaints. She denies pain at the present time. November 08. She has no new complaints. She states she is having some pain in her right pelvic area but it has gradually lessened over time. November 11. She has no new complaints. November 13. She has no new complaints. She denies pain or dyspnea. November 15. She has no new complaints. She denies pain or dyspnea. - Constitutional Vitals: Temp Pulse Resp BP Pulse Ox 97.8 F 16 80 131/74 96 11/15/18 06:59 11/15/18 06:59 11/15/18 06:59 11/15/18 06:59 11/15/18 06:59 Exam: She is resting comfortably in bed and appears in no acute distress. Her affect is overall cheerful. Extremities show no pitting edema. Heart is regular without murmurs gallops or ectopics. Lungs are clear anteriorly. I reviewed her medications and lab results. Internal Medicine: Result - Labs CBC & Chem 7: 11/14/18 04:36 11/14/18 04:36 Consult Discharge Plan - Plan Referrals: Kath Patton MD [Primary Care Provider] - 1 week
[2018-11-16] MEDS: Ascorbic Acid 500 MG TABLET PO SCH (06:15)
[2018-11-16] MEDS: *HR* Enoxaparin 30 MG/0.3 ML SYRINGE SQ SCH (06:15)
[2018-11-16] MEDS: Cholecalciferol (D-3) 1,000 UNIT (25MCG) TABLET PO SCH (08:03)
[2018-11-16] MEDS: Cyanocobalamin (B-12) 1,000 MCG TABLET PO SCH (08:04)
[2018-11-16] MEDS: PRESERVISION AREDS 2 FORMULA PO SCH ×2 (08:04→19:46)
[2018-11-16] MEDS: Multivit/Ca/Min/Fe/FA 1 TAB TABLET PO SCH (08:04)
[2018-11-16] MEDS: *HR* FentaNYL PATCH 25 MCG PATCH TD SCH (08:05)
[2018-11-16] MEDS: MOM Conc 10 ML UD.LIQ PO SCH (15:27)
[2018-11-17] MEDS: Ascorbic Acid 500 MG TABLET PO SCH (05:51)
[2018-11-17] MEDS: *HR* Enoxaparin 30 MG/0.3 ML SYRINGE SQ SCH (05:52)
[2018-11-17] MEDS: Cyanocobalamin (B-12) 1,000 MCG TABLET PO SCH (08:21)
[2018-11-17] MEDS: Multivit/Ca/Min/Fe/FA 1 TAB TABLET PO SCH (08:21)
[2018-11-17] MEDS: Cholecalciferol (D-3) 1,000 UNIT (25MCG) TABLET PO SCH (08:21)
[2018-11-17] MEDS: PRESERVISION AREDS 2 FORMULA PO SCH ×2 (08:23→20:14)
[2018-11-17] MEDS ORDERED: MOM Conc 10 ML UD.LIQ PO PRN (10:26)
--- NOTE | 2018-11-17 10:28 | Internal Med Progress Note ---
Date of Encounter: 11/17/18 Time of Encounter: 10:21 - Assessment and plan (1) Closed fracture of pubic ramus Current Visit: No Status: Acute Assessment and plan: November 03. Continue PT/OT, Duragesic, Tylenol, and prn Roxicodone. November 06. Continue present Rx. She will remain NWB through 11/14/2018. November 11. Follow-up with orthopedist 11/14/2018 to determine weightbearing status November 13. Follow-up with orthopedist tomorrow. November 15. She is to remain NWB at this time. Follow-up with orthopedist as directed. Qualifiers: Encounter type: initial encounter Laterality: right Qualified Code(s): S32.591A - Other specified fracture of right pubis, initial encounter for closed fracture (2) Fracture of sacrum Current Visit: No Status: Acute Assessment and plan: November 03. Continue PT/OT, Duragesic, Tylenol, and prn Roxicodone. November 13. Follow-up with orthopedist tomorrow. November 15. Continue NWB status as per above. Qualifiers: Encounter type: initial encounter Zone of sacrum fracture: unspecified portion of sacrum Fracture type: closed Qualified Code(s): S32.10XA - Unspecified fracture of sacrum, initial encounter for closed fracture (3) Hypertension Current Visit: No Status: Chronic Assessment and plan: November 03. Blood pressure stable off medication. Continue to monitor. Qualifiers: Hypertension type: essential hypertension Qualified Code(s): I10 - Essential (primary) hypertension (4) Anxiety disorder Current Visit: No Status: Chronic Assessment and plan: November 03. Continue prn hydroxyzine. Qualifiers: Anxiety disorder type: generalized anxiety disorder Qualified Code(s): F41.1 - Generalized anxiety disorder (5) Anemia Current Visit: No Status: Chronic Assessment and plan: November 03. Anemia testing showed iron 11, transferrin saturation 5%, transfe rrin 153, ferritin 206, B12 144, and folate 16.4. She was given a B12 injection and started on oral B12 supplement, ferrous sulfate, and ascorbic acid. November 04. Continue to monitor CBC periodically. November 06. Recheck labs in a.m. November 08. Hemoglobin minimally changed at 8.4 yesterday. Continue to monitor periodically. November 11. Hemoglobin stable at 8.3. Continue to monitor periodically. November 13. Recheck labs in a.m. November 15. Hemoglobin improved to 9.0. Continue B12, ferrous sulfate, ascorbic acid, and monitor periodically. November 17. Recheck labs in a.m. Qualifiers: Anemia type: unspecified type Qualified Code(s): D64.9 - Anemia, unspecified (6) CKD (chronic kidney disease) stage 3, GFR 30-59 ml/min Current Visit: No Status: Chronic Assessment and plan: November 03. BUN and creatinine stable today at 24 and 1.02 respectively with estimated GFR 52. Continue to monitor renal indices. November 06. Recheck labs in a.m. November 11. BUN and creatinine stable at 38 and 1.20. Continue to monitor periodically November 13. Recheck labs in a.m. November 15. BUN and creatinine improved at 33 and 0.99 respectively with estimated GFR 54. Continue to monitor periodically. November 17. Recheck labs in a.m. (7) LUZ (acute kidney injury) Current Visit: No Status: Acute Assessment and plan: November 03. As above November 13. Recheck labs in a.m. November 17. Recheck labs in a.m. (8) Diarrhea Current Visit: Yes Status: Acute Assessment and plan: November 17. Likely due to MOM. Change from scheduled to prn. Qualifiers: Diarrhea type: unspecified type Qualified Code(s): R19.7 - Diarrhea, unspecified - Subjective Interval history: November 03. She was hospitalized at [facility] acute-care October 29- after a fall at home sustaining displaced fracture of R sacrum, R inferior pubic ramus, and R superior pubic ramus. She had PT and OT evaluations with ongoing inte rvention. She was recommended NWB by orthopedists for at least 2 weeks. She has no new complaints today. November 04. She was experiencing more pain earlier today. She states she has no pain at rest but only on movement. November 06. She has no new complaints. She denies pain at the present time. November 08. She has no new complaints. She states she is having some pain in her right pelvic area but it has gradually lessened over time. November 11. She has no new complaints. November 13. She has no new complaints. She denies pain or dyspnea. November 15. She has no new complaints. She denies pain or dyspnea. November 17. She has no new complaints except diarrhea. She denies pain or dyspnea. - Constitutional Vitals: Temp Pulse Resp BP Pulse Ox 98.4 F 89 20 143/74 97 11/17/18 06:13 11/17/18 06:13 11/17/18 06:13 11/17/18 06:13 11/17/18 06:13 Exam: She is resting comfortably in a chair at bedside and appears in no acute distress. Her affect is bright and cheerful. Heart is regular with rate approximately 104/m. Lungs are clear. Extremities show no pitting edema. I reviewed her medications and lab results. Internal Medicine: Result - Labs CBC & Chem 7: 11/14/18 04:36 11/14/18 04:36 Consult Discharge Plan - Plan Referrals: Kath Patton MD [Primary Care Provider] - 1 week
[2018-11-18] MEDS: Ascorbic Acid 500 MG TABLET PO SCH (05:48)
[2018-11-18] MEDS: *HR* Enoxaparin 30 MG/0.3 ML SYRINGE SQ SCH (05:48)
[2018-11-18 06:29] LABS: Basophils % 0.7 %; Eosinophils # 0.1 K/mcL (0.0-0.6); Eosinophils % 2.6 %; Hematocrit 28.1 % (35.3-44.9); Hemoglobin 9.2 g/dL (11.5-15.4); Immature Granulocytes % 0.2 % (0-4); Lymphocytes # 1.8 K/mcL (0.6-4.6); Lymphocytes % 32.6 %; Mean Corpuscular HGB Conc 32.7 g/dL (31.6-35.5); Mean Corpuscular Volume 94.6 fL (83.0-100.0); Mean Platelet Volume 9.4 fL (9.4-12.4); Monocytes # 0.4 K/mcL (0.0-1.3); Monocytes % 7.7 %; Neutrophils # 3.1 K/mcL (1.6-8.9); Platelet Count 370 K/mcL (140-400); Red Blood Count 2.97 M/mcL (3.82-4.97); Red Cell Distribution Width 13.9 % (11.5-14.5); Segmented Neutrophils % 56.2 %; White Blood Count 5.5 K/mcL (4.3-11.1)
[2018-11-18 06:49] LABS: BUN/Creatinine Ratio 39 (6-26); Blood Urea Nitrogen 37 mg/dL (8-23); Calcium 8.9 mg/dL (8.6-10.3); Carbon Dioxide 29 mEq/L (23-29); Chloride 103 mEq/L (98-107); Glucose 97 mg/dL (70-105); Osmolality,Calculated 299 (280-300); Potassium 4.1 mEq/L (3.5-5.1); Sodium 140 mEq/L (136-145); eGFR For African Americans > 60 (> 60); eGFR For Non-African Americans 56 (> 60)
[2018-11-18] MEDS: PRESERVISION AREDS 2 FORMULA PO SCH ×2 (07:44→20:20)
[2018-11-18] MEDS: Cholecalciferol (D-3) 1,000 UNIT (25MCG) TABLET PO SCH (07:44)
[2018-11-18] MEDS: Multivit/Ca/Min/Fe/FA 1 TAB TABLET PO SCH (07:44)
[2018-11-18] MEDS: Cyanocobalamin (B-12) 1,000 MCG TABLET PO SCH (07:45)
[2018-11-19] MEDS: *HR* Enoxaparin 30 MG/0.3 ML SYRINGE SQ SCH (06:56)
[2018-11-19] MEDS: Ascorbic Acid 500 MG TABLET PO SCH (06:56)
[2018-11-19] MEDS: Multivit/Ca/Min/Fe/FA 1 TAB TABLET PO SCH (08:10)
[2018-11-19] MEDS: Cholecalciferol (D-3) 1,000 UNIT (25MCG) TABLET PO SCH (08:11)
[2018-11-19] MEDS: Cyanocobalamin (B-12) 1,000 MCG TABLET PO SCH (08:11)
[2018-11-19] MEDS: *HR* FentaNYL PATCH 25 MCG PATCH TD SCH (08:11)
[2018-11-19] MEDS: PRESERVISION AREDS 2 FORMULA PO SCH ×2 (08:16→20:10)
[2018-11-20] MEDS: *HR* Enoxaparin 30 MG/0.3 ML SYRINGE SQ SCH (06:46)
[2018-11-20] MEDS: Ascorbic Acid 500 MG TABLET PO SCH (06:46)
[2018-11-20] MEDS: Cholecalciferol (D-3) 1,000 UNIT (25MCG) TABLET PO SCH (08:04)
[2018-11-20] MEDS: Cyanocobalamin (B-12) 1,000 MCG TABLET PO SCH (08:04)
[2018-11-20] MEDS: Multivit/Ca/Min/Fe/FA 1 TAB TABLET PO SCH (08:04)
[2018-11-20] MEDS: PRESERVISION AREDS 2 FORMULA PO SCH ×2 (08:05→19:54)
--- NOTE | 2018-11-20 16:18 | Internal Med Progress Note ---
Date of Encounter: 11/20/18 Time of Encounter: 16:11 - Assessment and plan (1) Closed fracture of pubic ramus Current Visit: No Status: Acute Assessment and plan: November 03. Continue PT/OT, Duragesic, Tylenol, and prn Roxicodone. November 06. Continue present Rx. She will remain NWB through 11/14/2018. November 11. Follow-up with orthopedist 11/14/2018 to determine weightbearing status November 13. Follow-up with orthopedist tomorrow. November 15. She is to remain NWB at this time. Follow-up with orthopedist as directed. November 20. Her daughter wishes trial of decreased Duragesic. Continue Rx otherwise Qualifiers: Encounter type: initial encounter Laterality: right Qualified Code(s): S32.591A - Other specified fracture of right pubis, initial encounter for closed fracture (2) Fracture of sacrum Current Visit: No Status: Acute Assessment and plan: November 03. Continue PT/OT, Duragesic, Tylenol, and prn Roxicodone. November 13. Follow-up with orthopedist tomorrow. November 15. Continue NWB status as per above. Qualifiers: Encounter type: initial encounter Zone of sacrum fracture: unspecified portion of sacrum Fracture type: closed Qualified Code(s): S32.10XA - Unspecified fracture of sacrum, initial encounter for closed fracture (3) Hypertension Current Visit: No Status: Chronic Assessment and plan: November 03. Blood pressure stable off medication. Continue to monitor. Qualifiers: Hypertension type: essential hypertension Qualified Code(s): I10 - Essential (primary) hypertension (4) Anxiety disorder Current Visit: No Status: Chronic Assessment and plan: November 03. Continue prn hydroxyzine. Qualifiers: Anxiety disorder type: generalized anxiety disorder Qualified Code(s): F41.1 - Generalized anxiety disorder (5) Anemia Current Visit: No Status: Chronic Assessment and plan: November 03. Anemia testing showed iron 11, transferrin saturation 5%, transferrin 153, ferritin 206, B12 144, and folate 16.4. She was given a B12 injection and started on oral B12 supplement, ferrous sulfate, and ascorbic acid. November 04. Continue to monitor CBC periodically. November 06. Recheck labs in a.m. November 08. Hemoglobin minimally changed at 8.4 yesterday. Continue to monitor periodically. November 11. Hemoglobin stable at 8.3. Continue to monitor periodically. November 13. Recheck labs in a.m. November 15. Hemoglobin improved to 9.0. Continue B12, ferrous sulfate, ascorbic acid, and monitor periodically. November 17. Recheck labs in a.m. November 20. Hemoglobin improved to 9.2 on November 18. Continue to monitor periodically. Qualifiers: Anemia type: unspecified type Qualified Code(s): D64.9 - Anemia, unspecified (6) CKD (chronic kidney disease) stage 3, GFR 30-59 ml/min Current Visit: No Status: Chronic Assessment and plan: November 03. BUN and creatinine stable today at 24 and 1.02 respectively with estimated GFR 52. Continue to monitor renal indices. November 06. Recheck labs in a.m. November 11. BUN and creatinine stable at 38 and 1.20. Continue to monitor periodically November 13. Recheck labs in a.m. November 15. BUN and creatinine improved at 33 and 0.99 respectively with estimated GFR 54. Continue to monitor periodically. November 17. Recheck labs in a.m. November 20. Creatinine decreased to 0.95 on November 18 with estimated GFR 56. Continue to monitor. (7) LUZ (acute kidney injury) Current Visit: No Status: Acute Assessment and plan: November 03. As above November 13. Recheck labs in a.m. November 17. Recheck labs in a.m. November 20. As above. (8) Diarrhea Current Visit: Yes Status: Acute Assessment and plan: November 17. Likely due to MOM. Change from scheduled to prn. Qualifiers: Diarrhea type: unspecified type Qualified Code(s): R19.7 - Diarrhea, unsp ecified - Subjective Interval history: November 03. She was hospitalized at [facility] acute-care October 29- after a fall at home sustaining displaced fracture of R sacrum, R inferior pubic ramus, and R superior pubic ramus. She had PT and OT evaluations with ongoing intervention. She was recommended NWB by orthopedists for at least 2 weeks. She has no new complaints today. November 04. She was experiencing more pain earlier today. She states she has no pain at rest but only on movement. November 06. She has no new complaints. She denies pain at the present time. November 08. She has no new complaints. She states she is having some pain in her right pelvic area but it has gradually lessened over time. November 11. She has no new complaints. November 13. She has no new complaints. She denies pain or dyspnea. November 15. She has no new complaints. She denies pain or dyspnea. November 17. She has no new complaints except diarrhea. She denies pain or dyspnea. November 20. She has no new complaints. She denies pain. - Constitutional Vitals: Temp Pulse Resp BP Pulse Ox 98.0 F 91 16 122/75 95 11/20/18 06:15 11/20/18 06:15 11/20/18 06:15 11/20/18 06:15 11/20/18 06:15 Exam: She is resting comfortably in bed and appears in no acute distress. Her affect is bright and cheerful. I reviewed her medications and lab results. Internal Medicine: Result - Labs CBC & Chem 7: 11/18/18 06:00 11/18/18 06:00 Consult Discharge Plan - Plan Referrals: Kath Patton MD [Primary Care Provider] - 1 week
[2018-11-20] MEDS ORDERED: *HR* FentaNYL PATCH 12 MCG PATCH TD SCH (16:19)
[2018-11-21] MEDS: Ascorbic Acid 500 MG TABLET PO SCH (06:42)
[2018-11-21] MEDS: *HR* Enoxaparin 30 MG/0.3 ML SYRINGE SQ SCH (06:42)
[2018-11-21] MEDS: Cholecalciferol (D-3) 1,000 UNIT (25MCG) TABLET PO SCH (08:40)
[2018-11-21] MEDS: Multivit/Ca/Min/Fe/FA 1 TAB TABLET PO SCH (08:40)
[2018-11-21] MEDS: Cyanocobalamin (B-12) 1,000 MCG TABLET PO SCH (08:40)
[2018-11-21] MEDS: PRESERVISION AREDS 2 FORMULA PO SCH ×2 (08:41→19:59)
[2018-11-22] MEDS: *HR* Enoxaparin 30 MG/0.3 ML SYRINGE SQ SCH (03:24)
[2018-11-22] MEDS: Ascorbic Acid 500 MG TABLET PO SCH (03:24)
[2018-11-22] MEDS: PRESERVISION AREDS 2 FORMULA PO SCH ×2 (07:55→20:52)
[2018-11-22] MEDS: Cholecalciferol (D-3) 1,000 UNIT (25MCG) TABLET PO SCH (07:55)
[2018-11-22] MEDS: Cyanocobalamin (B-12) 1,000 MCG TABLET PO SCH (07:55)
[2018-11-22] MEDS: Multivit/Ca/Min/Fe/FA 1 TAB TABLET PO SCH (07:55)
[2018-11-23] MEDS: Ascorbic Acid 500 MG TABLET PO SCH (05:41)
[2018-11-23] MEDS: *HR* Enoxaparin 30 MG/0.3 ML SYRINGE SQ SCH (05:41)
[2018-11-23] MEDS: Multivit/Ca/Min/Fe/FA 1 TAB TABLET PO SCH (08:00)
[2018-11-23] MEDS: Cholecalciferol (D-3) 1,000 UNIT (25MCG) TABLET PO SCH (08:00)
[2018-11-23] MEDS: PRESERVISION AREDS 2 FORMULA PO SCH ×2 (08:00→20:35)
[2018-11-23] MEDS: Cyanocobalamin (B-12) 1,000 MCG TABLET PO SCH (08:00)
--- NOTE | 2018-11-23 11:51 | Internal Med Progress Note ---
Date of Encounter: 11/23/18 Time of Encounter: 11:44 - Assessment and plan (1) Closed fracture of pubic ramus Current Visit: No Status: Acute Assessment and plan: November 03. Continue PT/OT, Duragesic, Tylenol, and prn Roxicodone. November 06. Continue present Rx. She will remain NWB through 11/14/2018. November 11. Follow-up with orthopedist 11/14/2018 to determine weightbearing status November 13. Follow-up with orthopedist tomorrow. November 15. She is to remain NWB at this time. Follow-up with orthopedist as directed. November 20. Her daughter wishes trial of decreased Duragesic. Continue Rx otherwise November 23. Trial of discontinuation of Duragesic. Continue Tylenol and prn Roxicodone. Qualifiers: Encounter type: initial encounter Laterality: right Qualified Code(s): S32.591A - Other specified fracture of right pubis, initial encounter for closed fracture (2) Fracture of sacrum Current Visit: No Status: Acute Assessment and plan: November 03. Continue PT/OT, Duragesic, Tylenol, and prn Roxicodone. November 13. Follow-up with orthopedist tomorrow. November 15. Continue NWB status as per above. November 23. Follow-up appointment with orthopedist scheduled for 11/28/2018. Qualifiers: Encounter type: initial encounter Zone of sacrum fracture: unspecified portion of sacrum Fracture type: closed Qualified Code(s): S32.10XA - Unspecified fracture of sacrum, initial encounter for closed fracture (3) Hypertension Current Visit: No Status: Chronic Assessment and plan: November 03. Blood pressure stable off medication. Continue to monitor. Qualifiers: Hypertension type: essential hypertension Qualified Code(s): I10 - Essentia l (primary) hypertension (4) Anxiety disorder Current Visit: No Status: Chronic Assessment and plan: November 03. Continue prn hydroxyzine. Qualifiers: Anxiety disorder type: generalized anxiety disorder Qualified Code(s): F41.1 - Generalized anxiety disorder (5) Anemia Current Visit: No Status: Chronic Assessment and plan: November 03. Anemia testing showed iron 11, transferrin saturation 5%, transferrin 153, ferritin 206, B12 144, and folate 16.4. She was given a B12 injection and started on oral B12 supplement, ferrous sulfate, and ascorbic acid. November 04. Continue to monitor CBC periodically. November 06. Recheck labs in a.m. November 08. Hemoglobin minimally changed at 8.4 yesterday. Continue to monitor periodically. November 11. Hemoglobin stable at 8.3. Continue to monitor periodically. November 13. Recheck labs in a.m. November 15. Hemoglobin improved to 9.0. Continue B12, ferrous sulfate, ascorbic acid, and monitor periodically. November 17. Recheck labs in a.m. November 20. Hemoglobin improved to 9.2 on November 18. Continue to monitor periodically. November 23. Recheck labs in a.m. Qualifiers: Anemia type: unspecified type Qualified Code(s): D64.9 - Anemia, unspecified (6) CKD (chronic kidney disease) stage 3, GFR 30-59 ml/min Current Visit: No Status: Chronic Assessment and plan: November 03. BUN and creatinine stable today at 24 and 1.02 respectively with estimated GFR 52. Continue to monitor renal indices. November 06. Recheck labs in a.m. November 11. BUN and creatinine stable at 38 and 1.20. Continue to monitor periodically November 13. Recheck labs in a.m. November 15. BUN and creatinine improved at 33 and 0.99 respectively with estimated GFR 54. Continue to monitor periodically. November 17. Recheck labs in a.m. November 20. Creatinine decreased to 0.95 on November 18 with estimated GFR 56. Continue to monitor. November 23. Recheck labs in a.m. (7) LUZ (acute kidney injury) Current Visit: No Status: Acute Assessment and plan: November 03. As above November 13. Recheck labs in a.m. November 17. Recheck labs in a.m. November 20. As above. (8) Diarrhea Current Visit: Yes Status: Acute Assessment and plan: November 17. Likely due to MOM. Change from scheduled to prn. Qualifiers: Diarrhea type: unspecified type Qualified Code(s): R19.7 - Diarrhea, unspecified - Subjective Interval history: November 03. She was hospitalized at [facility] acute-care October 29- after a fa ll at home sustaining displaced fracture of R sacrum, R inferior pubic ramus, and R superior pubic ramus. She had PT and OT evaluations with ongoing intervention. She was recommended NWB by orthopedists for at least 2 weeks. She has no new complaints today. November 04. She was experiencing more pain earlier today. She states she has no pain at rest but only on movement. November 06. She has no new complaints. She denies pain at the present time. November 08. She has no new complaints. She states she is having some pain in her right pelvic area but it has gradually lessened over time. November 11. She has no new complaints. November 13. She has no new complaints. She denies pain or dyspnea. November 15. She has no new complaints. She denies pain or dyspnea. November 17. She has no new complaints except diarrhea. She denies pain or dyspnea. November 20. She has no new complaints. She denies pain. November 23. She has no new complaints. She denies pain or dyspnea. - Constitutional Vitals: Temp Pulse Resp BP Pulse Ox 97.6 F 84 16 127/74 96 11/23/18 06:24 11/23/18 06:24 11/23/18 06:24 11/23/18 06:24 11/23/18 08:13 Exam: She is resting comfortably in bed and appears in no acute distress. Her affect is bright and cheerful. Extremities show no pitting edema. I reviewed her medications and lab results. Internal Medicine: Result - Labs CBC & Chem 7: 11/18/18 06:00 11/18/18 06:00 Consult Discharge Plan - Plan Referrals: Kath Patton MD [Primary Care Provider] - 1 week
[2018-11-24] MEDS: Ascorbic Acid 500 MG TABLET PO SCH (06:15)
[2018-11-24] MEDS: *HR* Enoxaparin 30 MG/0.3 ML SYRINGE SQ SCH (06:15)
[2018-11-24 06:26] LABS: Basophils # 0.1 K/mcL (0.0-0.2); Eosinophils # 0.1 K/mcL (0.0-0.6); Eosinophils % 1.7 %; Hematocrit 31.3 % (35.3-44.9); Immature Granulocytes % 0.2 % (0-4); Lymphocytes # 1.8 K/mcL (0.6-4.6); Mean Corpuscular HGB Conc 31.9 g/dL (31.6-35.5); Mean Corpuscular Hemoglobin 30.7 pg (28.0-33.3); Mean Platelet Volume 10.2 fL (9.4-12.4); Monocytes # 0.5 K/mcL (0.0-1.3); Monocytes % 8.7 %; Neutrophils # 3.2 K/mcL (1.6-8.9); Platelet Count 273 K/mcL (140-400); Red Blood Count 3.26 M/mcL (3.82-4.97); Red Cell Distribution Width 14.3 % (11.5-14.5); Segmented Neutrophils % 56.4 %; White Blood Count 5.8 K/mcL (4.3-11.1)
[2018-11-24 06:42] LABS: BUN/Creatinine Ratio 40 (6-26); Blood Urea Nitrogen 39 mg/dL (8-23); Carbon Dioxide 31 mEq/L (23-29); Chloride 101 mEq/L (98-107); Glucose 91 mg/dL (70-105); Osmolality,Calculated 299 (280-300); Potassium 3.9 mEq/L (3.5-5.1); Sodium 140 mEq/L (136-145); eGFR For African Americans > 60 (> 60); eGFR For Non-African Americans 54 (> 60)
[2018-11-24] MEDS: Cholecalciferol (D-3) 1,000 UNIT (25MCG) TABLET PO SCH (09:21)
[2018-11-24] MEDS: Cyanocobalamin (B-12) 1,000 MCG TABLET PO SCH (09:21)
[2018-11-24] MEDS: Multivit/Ca/Min/Fe/FA 1 TAB TABLET PO SCH (09:22)
[2018-11-24] MEDS: PRESERVISION AREDS 2 FORMULA PO SCH ×2 (09:23→20:12)
[2018-11-25] MEDS: Ascorbic Acid 500 MG TABLET PO SCH (05:41)
[2018-11-25] MEDS: *HR* Enoxaparin 30 MG/0.3 ML SYRINGE SQ SCH (05:42)
[2018-11-25] MEDS: PRESERVISION AREDS 2 FORMULA PO SCH ×2 (08:23→19:58)
[2018-11-25] MEDS: Multivit/Ca/Min/Fe/FA 1 TAB TABLET PO SCH (08:23)
[2018-11-25] MEDS: Cyanocobalamin (B-12) 1,000 MCG TABLET PO SCH (08:23)
[2018-11-25] MEDS: Cholecalciferol (D-3) 1,000 UNIT (25MCG) TABLET PO SCH (08:26)
--- NOTE | 2018-11-25 16:41 | Internal Med Progress Note ---
Date of Encounter: 11/25/18 Time of Encounter: 16:34 - Assessment and plan (1) Closed fracture of pubic ramus Current Visit: No Status: Acute Assessment and plan: November 03. Continue PT/OT, Duragesic, Tylenol, and prn Roxicodone. November 06. Continue present Rx. She will remain NWB through 11/14/2018. November 11. Follow-up with orthopedist 11/14/2018 to determine weightbearing status November 13. Follow-up with orthopedist tomorrow. November 15. She is to remain NWB at this time. Follow-up with orthopedist as directed. November 20. Her daughter wishes trial of decreased Duragesic. Continue Rx otherwise November 23. Trial of discontinuation of Duragesic. Continue Tylenol and prn Roxicodone. Qualifiers: Encounter type: initial encounter Laterality: right Qualified Code(s): S32.591A - Other specified fracture of right pubis, initial encounter for closed fracture (2) Fracture of sacrum Current Visit: No Status: Acute Assessment and plan: November 03. Continue PT/OT, Duragesic, Tylenol, and prn Roxicodone. November 13. Follow-up with orthopedist tomorrow. November 15. Continue NWB status as per above. November 23. Follow-up appointment with orthopedist scheduled for 11/28/2018. Qualifiers: Encounter type: initial encounter Zone of sacrum fracture: unspecified portion of sacrum Fracture type: closed Qualified Code(s): S32.10XA - Unspecified fracture of sacrum, initial encounter for closed fracture (3) Hypertension Current Visit: No Status: Chronic Assessment and plan: November 03. Blood pressure stable off medication. Continue to monitor. Qualifiers: Hypertension type: essential hypertension Qualified Code(s): I10 - Essentia l (primary) hypertension (4) Anxiety disorder Current Visit: No Status: Chronic Assessment and plan: November 03. Continue prn hydroxyzine. Qualifiers: Anxiety disorder type: generalized anxiety disorder Qualified Code(s): F41.1 - Generalized anxiety disorder (5) Anemia Current Visit: No Status: Chronic Assessment and plan: November 03. Anemia testing showed iron 11, transferrin saturation 5%, transferrin 153, ferritin 206, B12 144, and folate 16.4. She was given a B12 injection and started on oral B12 supplement, ferrous sulfate, and ascorbic acid. November 04. Continue to monitor CBC periodically. November 06. Recheck labs in a.m. November 08. Hemoglobin minimally changed at 8.4 yesterday. Continue to monitor periodically. November 11. Hemoglobin stable at 8.3. Continue to monitor periodically. November 13. Recheck labs in a.m. November 15. Hemoglobin improved to 9.0. Continue B12, ferrous sulfate, ascorbic acid, and monitor periodically. November 17. Recheck labs in a.m. November 20. Hemoglobin improved to 9.2 on November 18. Continue to monitor periodically. November 23. Recheck labs in a.m. November 25. Hemoglobin improved to 10.0. Continue to monitor. Qualifiers: Anemia type: unspecified type Qualified Code(s): D64.9 - Anemia, un specified (6) CKD (chronic kidney disease) stage 3, GFR 30-59 ml/min Current Visit: No Status: Chronic Assessment and plan: November 03. BUN and creatinine stable today at 24 and 1.02 respectively with estimated GFR 52. Continue to monitor renal indices. November 06. Recheck labs in a.m. November 11. BUN and creatinine stable at 38 and 1.20. Continue to monitor periodically November 13. Recheck labs in a.m. November 15. BUN and creatinine improved at 33 and 0.99 respectively with e stimated GFR 54. Continue to monitor periodically. November 17. Recheck labs in a.m. November 20. Creatinine decreased to 0.95 on November 18 with estimated GFR 56. Continue to monitor. November 23. Recheck labs in a.m. November 25. Creatinine stable at 0.98. Continue to monitor periodically. (7) LUZ (acute kidney injury) Current Visit: No Status: Acute Assessment and plan: November 03. As above November 13. Recheck labs in a.m. November 17. Recheck labs in a.m. November 20. As above. (8) Diarrhea Current Visit: Yes Status: Acute Assessment and plan: November 17. Likely due to MOM. Change from scheduled to prn. Qualifiers: Diarrhea type: unspecified type Qualified Code(s): R19.7 - Diarrhea, unspecified - Subjective Interval history: November 03. She was hospitalized at [facility] acute-care October 29- after a fall at home sustaining displaced fracture of R sacrum, R inferior pubic ramus, and R superior pubic ramus. She had PT and OT evaluations with ongoing intervention. She was recommended NWB by orthopedists for at least 2 weeks. She has no new complaints today. November 04. She was experiencing more pain earlier today. She states she has no pain at rest but only on movement. November 06. She has no new complaints. She denies pain at the present time. November 08. She has no new complaints. She states she is having some pain in her right pelvic area but it has gradually lessened over time. November 11. She has no new complaints. November 13. She has no new complaints. She denies pain or dyspnea. November 15. She has no new complaints. She denies pain or dyspnea. November 17. She has no new complaints except diarrhea. She denies pain or dyspnea. November 20. She has no new complaints. She denies pain. November 23. She has no new complaints. She denies pain or dyspnea. November 25. She has no new complaints. She denies pain or dyspnea. - Constitutional Vitals: Temp Pulse Resp BP Pulse Ox 97.9 F 95 18 133/80 96 11/25/18 06:38 11/25/18 06:38 11/25/18 06:38 11/25/18 06:38 11/25/18 06:38 Exam: She is resting comfortably in a chair at bedside and appears in no acute distress. Her affect is bright and cheerful. I reviewed her medications and lab results. Internal Medicine: Result - Labs CBC & Chem 7: 11/24/18 05:19 11/24/18 05:19 Consult Discharge Plan - Plan Referrals: Kath Patton MD [Primary Care Provider] - 1 week
[2018-11-26] MEDS: Ascorbic Acid 500 MG TABLET PO SCH (05:33)
[2018-11-26] MEDS: *HR* Enoxaparin 30 MG/0.3 ML SYRINGE SQ SCH (05:33)
[2018-11-26] MEDS: Cyanocobalamin (B-12) 1,000 MCG TABLET PO SCH (09:43)
[2018-11-26] MEDS: Cholecalciferol (D-3) 1,000 UNIT (25MCG) TABLET PO SCH (09:43)
[2018-11-26] MEDS: Multivit/Ca/Min/Fe/FA 1 TAB TABLET PO SCH (09:43)
[2018-11-26] MEDS: PRESERVISION AREDS 2 FORMULA PO SCH ×2 (09:44→20:16)
[2018-11-27] MEDS: *HR* Enoxaparin 30 MG/0.3 ML SYRINGE SQ SCH (06:18)
[2018-11-27] MEDS: Ascorbic Acid 500 MG TABLET PO SCH (06:18)
[2018-11-27] MEDS: Cholecalciferol (D-3) 1,000 UNIT (25MCG) TABLET PO SCH (08:13)
[2018-11-27] MEDS: PRESERVISION AREDS 2 FORMULA PO SCH ×2 (08:13→20:01)
[2018-11-27] MEDS: Cyanocobalamin (B-12) 1,000 MCG TABLET PO SCH (08:13)
[2018-11-27] MEDS: Multivit/Ca/Min/Fe/FA 1 TAB TABLET PO SCH (08:13)
[2018-11-28] MEDS: Ascorbic Acid 500 MG TABLET PO SCH (06:04)
[2018-11-28] MEDS: *HR* Enoxaparin 30 MG/0.3 ML SYRINGE SQ SCH (06:04)
[2018-11-28] MEDS: PRESERVISION AREDS 2 FORMULA PO SCH ×2 (07:48→19:34)
[2018-11-28] MEDS: Cholecalciferol (D-3) 1,000 UNIT (25MCG) TABLET PO SCH (07:49)
[2018-11-28] MEDS: Cyanocobalamin (B-12) 1,000 MCG TABLET PO SCH (07:49)
[2018-11-28] MEDS: Multivit/Ca/Min/Fe/FA 1 TAB TABLET PO SCH (07:49)
--- NOTE | 2018-11-28 19:15 | Internal Med Progress Note ---
Date of Encounter: 11/28/18 Time of Encounter: 19:05 - Assessment and plan (1) Closed fracture of pubic ramus Current Visit: No Status: Acute Assessment and plan: November 03. Continue PT/OT, Duragesic, Tylenol, and prn Roxicodone. November 06. Continue present Rx. She will remain NWB through 11/14/2018. November 11. Follow-up with orthopedist 11/14/2018 to determine weightbearing status November 13. Follow-up with orthopedist tomorrow. November 15. She is to remain NWB at this time. Follow-up with orthopedist as directed. November 20. Her daughter wishes trial of decreased Duragesic. Continue Rx otherwise November 23. Trial of discontinuation of Duragesic. Continue Tylenol and prn Roxicodone. November 28. Continue present Rx. Insurance has issued a [employer] today. Qualifiers: Encounter type: initial encounter Laterality: right Qualified Code(s): S32.591A - Other specified fracture of right pubis, initial encounter for closed fracture (2) Fracture of sacrum Current Visit: No Status: Acute Assessment and plan: November 03. Continue PT/OT, Duragesic, Tylenol, and prn Roxicodone. November 13. Follow-up with orthopedist tomorrow. November 15. Continue NWB status as per above. November 23. Follow-up appointment with orthopedist scheduled for 11/28/2018. Qualifiers: Encounter type: initial encounter Zone of sacrum fracture: unspecified portion of sacrum Fracture type: closed Qualified Code(s): S32.10XA - Unspecified fracture of sacrum, initial encounter for closed fracture (3) Hypertension Current Visit: No Status: Chronic Assessment and plan: November 03. Blood pressure stable off medication. Continue to monitor. Qualifiers: Hypertension type: essential hypertension Qualified Code(s): I10 - Essential (primary) hypertension (4) Anxiety disorder Current Visit: No Status: Chronic Assessment and plan: November 03. Continue prn hydroxyzine. Qualifiers: Anxiety disorder type: generalized anxiety disorder Qualified Code(s): F41.1 - Generalized anxiety disorder (5) Anemia Current Visit: No Status: Chronic Assessment and plan: November 03. Anemia testing showed iron 11, transferrin saturation 5%, transferrin 153, ferritin 206, B12 144, and folate 16.4. She was given a B12 injection and started on oral B12 supplement, ferrous sulfate, and ascorbic acid. November 04. Continue to monitor CBC periodically. November 06. Recheck labs in a.m. November 08. Hemoglobin minimally changed at 8.4 yesterday. Continue to monitor periodically. November 11. Hemoglobin stable at 8.3. Continue to monitor periodically. November 13. Recheck labs in a.m. November 15. Hemoglobin improved to 9.0. Continue B12, ferrous sulfate, ascorbic acid, and monitor periodically. November 17. Recheck labs in a.m. November 20. Hemoglobin improved to 9.2 on November 18. Continue to monitor periodically. November 23. Recheck labs in a.m. November 25. Hemoglobin improved to 10.0. Continue to monitor. Qualifiers: Anemia type: unspecified type Qualified Code(s): D64.9 - Anemia, unspecified (6) CKD (chronic kidney disease) stage 3, GFR 30-59 ml/min Current Visit: No Status: Chronic Assessment and plan: November 03. BUN and creatinine stable today at 24 and 1.02 respectively with estimated GFR 52. Continue to monitor renal indices. November 06. Recheck labs in a.m. November 11. BUN and creatinine stable at 38 and 1.20. Continue to monitor periodically November 13. Recheck labs in a.m. November 15. BUN and creatinine improved at 33 and 0.99 respectively with estimated GFR 54. Continue to monitor periodically. November 17. Recheck labs in a.m. November 20. Creatinine decreased to 0.95 on November 18 with estimated GFR 56. Continue to monitor. November 23. Recheck labs in a.m. November 25. Creatinine stable at 0.98. Continue to monitor periodically. (7) LUZ (acute kidney injury) Current Visit: No Status: Acute Assessment and plan: November 03. As above November 13. Recheck labs in a.m. November 17. Recheck labs in a.m. November 20. As above. (8) Diarrhea Current Visit: Yes Status: Acute Assessment and plan: November 17. Likely due to MOM. Change from scheduled to prn. Qualifiers: Diarrhea type: unspecified type Qualified Code(s): R19.7 - Diarrhea, unspecified - Subjective Interval history: November 03. She was hospitalized at [facility] acute-care October 29 after a fall at home sustaining displaced fracture of R sacrum, R inferior pubic ramus, and R superior pubic ramus. She had PT and OT evaluations with ongoing intervention. She was recommended NWB by orthopedists for at least 2 weeks. She has no new complaints today. November 04. She was experiencing more pain earlier today. She states she has no pain at rest but only on movement. November 06. She has no new complaints. She denies pain at the present time. November 08. She has no new complaints. She states she is having some pain in her right pelvic area but it has gradually lessened over time. November 11. She has no new complaints. November 13. She has no new complaints. She denies pain or dyspnea. November 15. She has no new complaints. She denies pain or dyspnea. November 17. She has no new complaints except diarrhea. She denies pain or dyspnea. November 20. She has no new complaints. She denies pain. November 23. She has no new complaints. She denies pain or dyspnea. November 25. She has no new complaints. She denies pain or dyspnea. November 28. She has no new complaints and feels well. She denies pain. She states she received a good report at the orthopedist visit today and can now bear weight. - Constitutional Vitals: Temp Pulse Resp BP Pulse Ox 97.8 F 83 14 130/62 95 11/28/18 06:30 11/28/18 06:30 11/28/18 06:30 11/28/18 06:30 11/28/18 06:30 Exam: She is resting comfortably in bed and appears in no acute distress. Her affect is bright and cheerful. She did not cough during examination. (Cough was reported earlier today by nursing staff) She did not appear dyspneic. Extremities showed no edema. I reviewed her medications and lab results. Internal Medicine: Result - Labs CBC & Chem 7: 11/24/18 05:19 11/24/18 05:19 Consult Discharge Plan - Plan Referrals: Kath Patton MD [Primary Care Provider] - 1 week
[2018-11-29] MEDS: Ascorbic Acid 500 MG TABLET PO SCH (06:25)
[2018-11-29] MEDS: *HR* Enoxaparin 30 MG/0.3 ML SYRINGE SQ SCH (06:25)
[2018-11-29] MEDS: Multivit/Ca/Min/Fe/FA 1 TAB TABLET PO SCH (08:43)
[2018-11-29] MEDS: Cholecalciferol (D-3) 1,000 UNIT (25MCG) TABLET PO SCH (08:43)
[2018-11-29] MEDS: Cyanocobalamin (B-12) 1,000 MCG TABLET PO SCH (08:43)
[2018-11-29] MEDS: PRESERVISION AREDS 2 FORMULA PO SCH ×2 (08:47→19:21)
[2018-11-30] MEDS: Ascorbic Acid 500 MG TABLET PO SCH (05:24)
[2018-11-30] MEDS: *HR* Enoxaparin 30 MG/0.3 ML SYRINGE SQ SCH (05:25)
[2018-11-30] MEDS: Cholecalciferol (D-3) 1,000 UNIT (25MCG) TABLET PO SCH (08:38)
[2018-11-30] MEDS: Multivit/Ca/Min/Fe/FA 1 TAB TABLET PO SCH (08:38)
[2018-11-30] MEDS: PRESERVISION AREDS 2 FORMULA PO SCH ×2 (08:38→19:38)
[2018-11-30] MEDS: Cyanocobalamin (B-12) 1,000 MCG TABLET PO SCH (08:38)
[2018-12-01] MEDS: *HR* Enoxaparin 30 MG/0.3 ML SYRINGE SQ SCH (06:36)
[2018-12-01] MEDS: Ascorbic Acid 500 MG TABLET PO SCH (06:36)
[2018-12-01 07:05] VITALS: BP 149/80
[2018-12-01] MEDS: Cholecalciferol (D-3) 1,000 UNIT (25MCG) TABLET PO SCH (08:30)
[2018-12-01] MEDS: Multivit/Ca/Min/Fe/FA 1 TAB TABLET PO SCH (08:30)
[2018-12-01] MEDS: Cyanocobalamin (B-12) 1,000 MCG TABLET PO SCH (08:31)
[2018-12-01] MEDS: PRESERVISION AREDS 2 FORMULA PO SCH (08:31)
[2018-12-01] MEDS ORDERED: FLU Vac QV 19-20 (6Month+)/PF 0.5 ML SYRINGE IM ONE (13:45)
--- NOTE | 2018-12-01 14:48 | Discharge Summary ---
Date of Encounter: 12/01/18 Time of Encounter: 14:35 - Discharge Diagnosis (1) Closed fracture of pubic ramus Priority: Primary Status: Acute Qualifiers: Encounter type: initial encounter Laterality: right Qualified Code(s): S32.591A - Other specified fracture of right pubis, initial encounter for closed fracture (2) Fracture of sacrum Priority: Secondary Status: Acute Qualifiers: Encounter type: initial encounter Zone of sacrum fracture: unspecified portion of sacrum Fracture type: closed Qualified Code(s): S32.10XA - Unspecified fracture of sacrum, initial encounter for closed fracture (3) Hypertension Priority: Secondary Status: Chronic Qualifiers: Hypertension type: essential hypertension Qualified Code(s): I10 - Essential (primary) hypertension (4) Anxiety disorder Priority: Secondary Status: Chronic Qualifiers: Anxiety disorder type: generalized anxiety disorder Qualified Code(s): F41.1 - Generalized anxiety disorder (5) Anemia Priority: Secondary Status: Chronic Qualifiers: Anemia type: unspecified type Qualified Code(s): D64.9 - Anemia, unspecified (6) CKD (chronic kidney disease) stage 3, GFR 30-59 ml/min Priority: Secondary Status: Chronic (7) LUZ (acute kidney injury) Priority: Secondary Status: Acute (8) Diarrhea Priority: Secondary Status: Resolved Qualifiers: Diarrhea type: unspecified type Qualified Code(s): R19.7 - Diarrhea, unspecified Hospital course: Ms. Lima is a 83 year old female who was hospitalized at [facility] acute-care October 29- after a fall at home sustaining displaced fracture of R sacrum, R inferior pubic ramus, and R superior pubic ramus. She had PT and OT evaluations with ongoing intervention. She was recommended NWB by orthopedists for at least 2 weeks. She continued with PT/OT with satisfactory improvement. She was able to ambulate in the barker with a walker. She will have home health services ordered at discharge. She will follow with the orthopedist 12/26/2018 per her daughter's report. Blood pressure remained stable off medication. Hemoglobin was improved at 10.0 on November 24. Her PCP can continue to monitor. Hypokalemia resolved with supplemental potassium. She will continue supplemental potassium at home with a one-week prescription given. Her PCP can monitor and determine if additional medication is needed. Chronic kidney disease remained stable with estimated GFR 54 on 11/24/2018. She will follow with her PCP Dr. Kath Patton within 1 week. - Time Spent with Patient Total time spent providing and/or coordinating discharge services: - Discharge Medications Prescriptions: New Potassium Chloride 10 meq PO BIDWM #14 tab.er.prt Continued hydrOXYzine HCl [Hydroxyzine HCl] 25 mg PO Q6HR PRN #20 tab PRN Reason: Anxiety Clopidogrel [Plavix] 75 mg PO DAILY Cholecalciferol (D-3) [Vitamin D] 2,000 unit PO DAILY Rosuvastatin Calcium 5 mg PO DAILY Vit C/E/Zn/Coppr/Lutein/Zeaxan [Preservision Areds 2 Softgel] 1 tab PO BID Celexa 10 mg PO DAILY MOM Conc [MILK OF MAGNESIA conc] 10 ml PO Q48H ud.liq Patient Taking Own Medication 1 each PO BID each Omeprazole [PriLOSEC] 20 mg PO DAILY@0630 PRN capsule.dr RAMIRESN Reason: Dyspepsia Multivit/Ca/Min/Fe/FA [Thera M Plus] 1 tab PO DAILY tablet Acetaminophen [Tylenol] 500 mg PO Q4HWA tablet Docusate [Colace] 100 mg PO BID capsule Ferrous Sulfate 325 mg PO 0630 #30 tablet Cyanocobalamin (B-12) [Vitamin B12] 1,000 mcg PO DAILY #30 tablet Ascorbic Acid [Vitamin C] 500 mg PO 0630 #30 tablet Discontinued Temazepam [Restoril] 15 mg PO HS Lactobacillus Acidophilus [Acidophilus Probiotic] 1 mg PO DAILY FentaNYL PATCH [Duragesic] 25 mcg TD Q72H 14 Days patch.td72 OxyCODONE Immed Rel [Roxicodone 5 MG] 5 mg PO Q4HR PRN 7 Days #42 tablet PRN Reason: Pain Home Medications: Clopidogrel [Plavix] 75 mg PO DAILY 02/20/17 [History] Cholecalciferol (D-3) [Vitamin D] 2,000 unit PO DAILY 05/28/18 [History] Rosuvastatin Calcium 5 mg PO DAILY 05/28/18 [History] Vit C/E/Zn/Coppr/Lutein/Zeaxan [Preservision Areds 2 Softgel] 1 tab PO BID 05/28/18 [History] hydrOXYzine HCl [Hydroxyzine HCl] 25 mg PO Q6HR PRN #20 tab 10/18/18 [Rx] Celexa 10 mg PO DAILY 10/31/18 [History] Acetaminophen [Tylenol] 500 mg PO Q4HWA tablet 11/02/18 [Rx] Docusate [Colace] 100 mg PO BID capsule 11/02/18 [Rx] MOM Conc [MILK OF MAGNESIA conc] 10 ml PO Q48H ud.liq 11/02/18 [Rx] Multivit/Ca/Min/Fe/FA [Thera M Plus] 1 tab PO DAILY tablet 11/02/18 [Rx] Omeprazole [PriLOSEC] 20 mg PO DAILY@0630 PRN capsule. 11/02/18 [Rx] Patient Taking Own Medication 1 each PO BID each 11/02/18 [Rx] Ascorbic Acid [Vitamin C] 500 mg PO 0630 #30 tablet 12/01/18 [Rx] Cyanocobalamin (B-12) [Vitamin B12] 1,000 mcg PO DAILY #30 tablet 12/01/18 [Rx] Ferrous Sulfate 325 mg PO 0630 #30 tablet 12/01/18 [Rx] Potassium Chloride 10 meq PO BIDWM #14 tab.er.prt 12/01/18 [Rx] Allergies/Adverse Reactions: Allergy/AdvReac Type Severity Reaction Status Date / Time acetazolamide Allergy Hallucinati Verified 10/18/18 11:15 [From Diamox Sequels] ng Penicillins [PCN] Allergy Hives Verified 10/18/18 11:15 Date of admission: 11/02/18 17:38 Primary care physician: Kath Patton Consults: 11/02/18 16:06 Consult to Cloth Grader Supervisor [CONS] Routine Reason for SW Consult: discharge planning 11/02/18 16:48 Consult to Physical Therapy [CONS] Routine Comment: Evaluate, develop and implement POC Reason for Consult: pelvic fracture, immobility NWB to RLE may do transfers and w/c mobility Does patient have active BEDREST order?: No Is patient medically & hemodynamically stable?: Yes Patient assessed for mobility or mobilized this visit?: Yes OT [Consult to Occupational Therapy] [CONS] Routine Comment: Evaluate, develop and implement POC Reason for Consult: pelvic fracture, immobility NWB to RLE may do transfers and w/c mobility Does patient have active BEDREST order?: No Is patient medically & hemodynamically stable?: Yes Patient assessed for mobility or mobilized this visit?: Yes - Constitutional Vitals: Temp Pulse Resp BP Pulse Ox 98.3 F 87 21 149/80 96 12/01/18 06:20 12/01/18 07:04 12/01/18 07:04 12/01/18 07:04 12/01/18 07:04 - Patient Status Disposition: Home Health Service - Discharge Instructions Follow Up With: Kath Patton MD [Primary Care Provider] - 1 week (November @ 3:00PM Dr. Mustafa) - Diet and Activity Activity: as per physical therapy Diet: low salt diet
--- NOTE | 2018-12-01 15:52 | Physician Discharge Referral ---
Home Health/Hosp Referral Info Transfer to: Home Health Attending Provider: Tian Provider in Charge Post Discharge: PCP Allan) - Diagnosis (1) Closed fracture of pubic ramus Priority: Primary Status: Acute (2) Fracture of sacrum Priority: Secondary Status: Acute (3) Hypertension Priority: Secondary Status: Chronic (4) Anxiety disorder Priority: Secondary Status: Chronic (5) Anemia Priority: Secondary Status: Chronic (6) CKD (chronic kidney disease) stage 3, GFR 30-59 ml/min Priority: Secondary Status: Chronic (7) LUZ (acute kidney injury) Priority: Secondary Status: Acute (8) Diarrhea Priority: Secondary Status: Resolved - Respiratory Orders Smoking Cessation: Smoking cessation has been advised. For more information, call the [place] Tobacco Quit Line at 1-944-PWXY-NOW. - Diet/Nutrition Diet/Nutrition Orders: Cardiac - Activity Activity Orders: Walker - Services Needed Following services are medically necessary services: Nursing, Home Health Aide, Physical Therapy, Occupational Therapy - Transfer Medications Prescriptions: Ferrous Sulfate 325 mg PO 0630 #30 tablet Prescription Printed Potassium Chloride 10 meq PO BIDWM #14 tab.er.prt Transmission Status: Received by [facility] Cyanocobalamin (B-12) [Vitamin B12] 1,000 mcg PO DAILY #30 tablet Prescription Printed Ascorbic Acid [Vitamin C] 500 mg PO 0630 #30 tablet Prescription Printed Home Medications: Clopidogrel [Plavix] 75 mg PO DAILY 02/20/17 [History] Cholecalciferol (D-3) [Vitamin D] 2,000 unit PO DAILY 05/28/18 [History] Rosuvastatin Calcium 5 mg PO DAILY 05/28/18 [History] Vit C/E/Zn/Coppr/Lutein/Zeaxan [Preservision Areds 2 Softgel] 1 tab PO BID 05/28/18 [History] hydrOXYzine HCl [Hydroxyzine HCl] 25 mg PO Q6HR PRN #20 tab 10/18/18 [Rx] Celexa 10 mg PO DAILY 10/31/18 [History] Acetaminophen [Tylenol] 500 mg PO Q4HWA tablet 11/02/18 [Rx] Docusate [Colace] 100 mg PO BID capsule 11/02/18 [Rx] MOM Conc [MILK OF MAGNESIA conc] 10 ml PO Q48H ud.liq 11/02/18 [Rx] Multivit/Ca/Min/Fe/FA [Thera M Plus] 1 tab PO DAILY tablet 11/02/18 [Rx] Omeprazole [PriLOSEC] 20 mg PO DAILY@0630 PRN capsule. 11/02/18 [Rx] Patient Taking Own Medication 1 each PO BID each 11/02/18 [Rx] Ascorbic Acid [Vitamin C] 500 mg PO 0630 #30 tablet 12/01/18 [Rx] Cyanocobalamin (B-12) [Vitamin B12] 1,000 mcg PO DAILY #30 tablet 12/01/18 [Rx] Ferrous Sulfate 325 mg PO 0630 #30 tablet 12/01/18 [Rx] Potassium Chloride 10 meq PO BIDWM #14 tab.er.prt 12/01/18 [Rx] Allergies/Adverse Reactions: Allergy/AdvReac Type Severity Reaction Status Date / Time acetazolamide Allergy Hallucinati Verified 10/18/18 11:15 [From Diamox Sequels] ng Penicillins [PCN] Allergy Hives Verified 10/18/18 11:15 Certification: Further, I certify that my clinical findings support that this patient is homebound (i.e. absences from home require considerable and taxing effort and are for medical reasons or yazidism services or infrequently or short duration when for other reasons) because: Homebound Reason: Leaving home requires considerable and taxing effort due to condition (Impaired walking ability secondary to pelvic fracture.) Attestation: My signature below is to certify that this patient is under my care and that I, or nurse practitioner, or a physician's assistant toddler teacher working with me, has a [id number] encounter with this patient.
== END 2018-12-01 15:45 | disposition home health service (06) | DRG 560 ==
LOC: INPPIK 17:38
PROVIDERS: ADMIT Internal Medicine; ATTEND Internal Medicine